=== PATIENT | female | born 1945 | race Caucasian/White ===

== ENCOUNTER → 2018-03-05 | Outpatient (CLI) | payer MEDICARE, OTHER | LOC: RAD 10:19 | PROVIDERS: ATTEND Family Medicine | DX: Z12.31 Encounter for screening mammogram for malignant neoplasm of breast (principal) | CPT/HCPCS: 77067 ==

== ENCOUNTER → 2018-04-28 | Outpatient (CLI) | payer MEDICARE, OTHER | LOC: CARD 12:40 | PROVIDERS: ATTEND Physician Assistant | DX: I10 Essential (primary) hypertension (principal); E78.2 Mixed hyperlipidemia; E11.9 Type 2 diabetes mellitus without complications; Z95.2 Presence of prosthetic heart valve | CPT/HCPCS: 93306 ==

== ENCOUNTER → 2018-05-12 | Outpatient (CLI) | payer MEDICARE, OTHER ==
[~2018-05-12] MED LIST: CATHETER FLUSH 10 ML SYR IV PRN; REGADENOSON 0.4 MG/5 ML SYR (LEXISCAN) IV ONE
[2018-05-12 09:27] VITALS: BP 160/94
--- NOTE | 2018-05-12 14:35 | STRESS TEST ---
DATE OF SERVICE: 05/12/2018 LEXISCAN MYOVIEW STRESS TEST REFERRING PHYSICIAN: Dr. Powell Baseline heart rate is 94. Baseline blood pressure 160/94. Baseline EKG is sinus rhythm with no ischemic changes. In summary, the patient was injected with 10.34 mCi of technetium-99 Myoview and the resting images were obtained. Then, the patient received 0.4 mg of Lexiscan followed by 29.0 mCi of technetium-99 Myoview. Throughout the test, there were no EKG changes. The resting and stress images were reviewed and compared in the short axis, horizontal long axis, and vertical long axis views. Review of the images showed breast attenuation with typical female pattern. No significant ischemia or infarction was seen. SSS is 3, SDS 2, TID value 0.9. On the gated images, the left ventricle appeared to be small in size with hyperactive ventricle. Calculated ejection fraction 91%. CONCLUSION: 1. The patient tolerated Lexiscan well. 2. Breast attenuation with no significant ischemia or infarction on SPECT images. 3. Small left ventricular size with good contractility. Calculated ejection fraction 91%. Job ID: [id number] DocumentID: [id number] Dictated Date: 05/12/2018 12:04:48 Lubrication Supervisor Date: 05/12/2018 14:35:07 Dictated By: MARTHA POLLARD MD
== END ==
LOC: CARD 07:34
PROVIDERS: ATTEND Physician Assistant
DX: I10 Essential (primary) hypertension (principal); E78.2 Mixed hyperlipidemia; E11.9 Type 2 diabetes mellitus without complications; Z95.2 Presence of prosthetic heart valve
CPT/HCPCS: 78452; 93017

== ENCOUNTER → 2018-05-27 | Outpatient (CLI) | payer MEDICARE, OTHER ==
--- NOTE | 2018-05-27 14:37 | Diagnostic Imaging Report ---
INDICATION: Cough x4 months. TECHNIQUE: Two view chest at 10:00 a.m. CORRELATION STUDY: None FINDINGS: Poststernotomy changes with cardiac valve prosthesis and a closure device. Heart size is enlarged. There is present pulmonary vascular congestion and perihilar edema. There is ill-defined prominent appearance about the hilar structures. Mildly prominent interstitial markings about both lung arellano. Choco consolidating infiltrate does not appear to be present. No pneumothorax. Slightly accentuated thoracic kyphotic curvature with degenerative changes about the thoracic and lumbar spine. Calcification of the abdominal aorta. IMPRESSION: 1. Post sternotomy changes. Cardiac enlargement along with what appears to be pulmonary vascular congestion and perihilar edema. Follow-up imaging is recommended. Dictated by: Dictated on workstation # [id number]
--- NOTE | 2018-05-27 14:39 | Diagnostic Imaging Report ---
INDICATION: Increasing severity lower back pain. TECHNIQUE: AP, Lateral and Spot imaging of the lumbar spine CORRELATION STUDY: None FINDINGS: Mild rightward curvature of the lumbar spine. Alignment otherwise anatomic. Lumbar vertebral body heights maintained. Endplate lipping and mild sclerosis noted throughout the lumbar spine. Multilevel disc space narrowing in various degrees. Most pronounced at T12-L1, L1-L2, L3-L4 and L5-S1 levels. Very mild hypertrophic facet arthropathy at the L4-5 and L5-S1 levels. Dense aortic atherosclerotic vascular calcification. IMPRESSION: No radiographic evidence for acute bony abnormality of the lumbar spine. Mildly advanced multilevel degenerative changes are present. Mild rightward curvature of the lumbar spine. Dictated by: Dictated on workstation # [id number]
== END ==
LOC: RAD 09:26
PROVIDERS: ATTEND Family Medicine
DX: I51.7 Cardiomegaly (principal); M47.816 Spondylosis without myelopathy or radiculopathy, lumbar region; M43.8X6 Other specified deforming dorsopathies, lumbar region; R05 Cough; Z98.890 Other specified postprocedural states
CPT/HCPCS: 71046; 72100

== ENCOUNTER → 2018-07-04 | Outpatient (CLI) | payer MEDICARE, OTHER ==
--- NOTE | 2018-07-04 11:39 | Diagnostic Imaging Report ---
PROCEDURE: US Renal Bilateral. TECHNIQUE: Multiple real-time grayscale images were obtained over the kidneys in various projections bilaterally. INDICATION: Hematuria. Right kidney measures 9.1 x 3.3 x 4.6 cm, and left kidney measures 9.5 x 4.7 x 4.5 cm. Cortical thickness and echogenicity is normal. There is a cyst in lower pole of the left kidney measuring 3.5 x 3.7 cm. No calculi or hydronephrosis is seen. Bladder is unremarkable. Bilateral ureteral jets were visualized. IMPRESSION: Left renal cyst. The study is otherwise unremarkable. Dictated by: Dictated on workstation # [id number]
== END ==
LOC: RAD 10:21
PROVIDERS: ATTEND Nurse Practitioner Family
DX: N28.1 Cyst of kidney, acquired (principal); R31.9 Hematuria, unspecified
CPT/HCPCS: 76770

== ENCOUNTER 2018-09-10 05:45 | Outpatient (CLI) | payer MEDICARE, OTHER ==
[~2018-09-10] VITALS: Ht 157.5 cm; Wt 68.0 kg
[2018-09-10] MEDS ORDERED: CHOL200059 PO (12:07)
[2018-09-10] MEDS ORDERED: FURO20TA4 PO (12:07)
[2018-09-10] MEDS ORDERED: METO-387 PO (12:07)
[2018-09-10] MEDS ORDERED: EZET10TA5 PO (12:07)
[2018-09-10] MEDS ORDERED: LOSA25TA41 PO (12:07)
[2018-09-10] MEDS ORDERED: VITA-240 PO (12:07)
[2018-09-10] MEDS ORDERED: OMEG10005 PO (12:07)
[2018-09-10] MEDS ORDERED: MULT-633 PO (12:07)
[2018-09-10] MEDS ORDERED: METF-399 PO (12:07)
[2018-09-10] MEDS ORDERED: ALLO100T PO (12:07)
[2018-09-10] MEDS ORDERED: CALC600T12 PO (12:07)
[2018-09-10] MEDS ORDERED: L.AC1CAP6 PO (12:07)
== END 2018-09-10 12:12 | disposition home or self-care (01) ==
LOC: PREOP 05:45
PROVIDERS: ATTEND Specialist
DX: Z01.818 Encounter for other preprocedural examination (principal)

== ENCOUNTER 2018-09-12 07:37 | Day surgery (SDC) | payer MEDICARE, OTHER ==
[~2018-09-12] VITALS: Ht 157.5 cm; Wt 68.0 kg
[~2018-09-12 07:37] MED LIST changes: +ALLO100T PO; +CALC600T12 PO; -CATHETER FLUSH 10 ML SYR IV PRN; +CHOL200059 PO; +EZET10TA5 PO; +FURO20TA4 PO; +L.AC1CAP6 PO; +LOSA25TA41 PO; +METF-399 PO; +METO-387 PO; +MULT-633 PO; +OMEG10005 PO; -REGADENOSON 0.4 MG/5 ML SYR (LEXISCAN) IV ONE; +VITA-240 PO
[2018-09-12] MEDS ORDERED: LIDOCAINE PF 1% 2 ML AMP IR PRN (07:45)
[2018-09-12] MEDS ORDERED: POVIDONE (BETADINE) OPHTH SOLN 5% 30 ML OP ONE (07:45)
[2018-09-12] MEDS ORDERED: MOXIFLOXACIN OPHTH SOLN 5 MG/ML 0.3 ML SYRINGE OP ONE (07:45)
[2018-09-12] MEDS ORDERED: TIMOLOL MALEATE 0.5% 5 ML (TIMOPTIC) BTL OU PRN (07:45)
[2018-09-12 07:50] VITALS: BP 155/69
[2018-09-12] MEDS: TETRACAINE 0.5% OPHTH SOLN 4 ML BTL (SINGLE DOSE ONLY) OU PRN ×4 (07:58→08:18)
[2018-09-12] MEDS: PHENYLEPHRINE 10% OPHTH (NEO-SYN) 5 ML BTL OU SCH ×3 (08:08→08:19)
[2018-09-12] MEDS: CYCLOPENTOLATE 1% (CYCLOGYL) 2 ML DROPS OP SCH ×3 (08:08→08:19)
[2018-09-12] MEDS ORDERED: MIDAZOLAM 2 MG/2 ML (VERSED) VIAL ONE (08:16)
--- NOTE | 2018-09-12 08:31 | Ophthalmologist Pre-Op Note ---
Pre-Operative Progress Note H&P Reviewed The H&P was reviewed, patient examined and no changes noted. Date H&P Reviewed: Sep 12, 2018 Time H&P Reviewed: 08:31 Pre-Op Dx Cataract, Right Eye MOE ALEXANDER MD Sep 12, 2018 08:31
--- NOTE | 2018-09-12 08:59 | Ophthalmology Operative Report ---
Cataract removal/placement IOL PREOPERATIVE DIAGNOSIS: Cataract Right Eye POSTOPERATIVE DIAGNOSIS: Cataract Right Eye PROCEDURE: Cataract removal and placement of posterior chamber implant, right eye SURGEON: Sudheer Alexander ANESTHESIA: Topical with sedation COMPLICATIONS: None ESTIMATED BLOOD LOSS: Minimal DESCRIPTION OF PROCEDURE: After proper informed consent was obtained, the patient, a 73 female, was taken to the Operating Room and the right eye was anesthetized with tetracaine. The right eye was then prepped and draped in the usual manner. A wire lid speculum was placed. A paracentesis was made at the left hand position. Preservative free lidocaine was injected into the anterior chamber followed by viscoelastic. A clear corneal incision was made in the temporal position. A capsulorrhexis was preformed and the central nuclear and cortical material were removed. The posterior capsule was polished and Jake AU00T0 16.5 IOL was placed into the capsular bag. The residual viscoelastic was aspirated and balanced saline solution was injected into the anterior chamber. Moxifloxacin was injected into the anterior chamber. The wound was checked and found to be water tight. The patient tolerated the procedure well without complications. SUDHEER ALEXANDER MD Sep 12, 2018 08:59
[2018-09-12] MEDS ORDERED: acetaZOLAMIDE ER 500 MG CAP (DIAMOX SEQUELS) PO ONE (09:00)
[2018-09-12 09:05] VITALS: BP 149/72
--- NOTE | 2018-09-12 10:27 | Anesthesia-General Post-Op ---
MAC Patient Condition Mental Status/LOC: Same as Preop Cardiovascular: Satisfactory Nausea/Vomiting: Absent Respiratory: Satisfactory Pain: Controlled Complications: Absent Post Op Complications Complications None Follow Up Care/Instructions Patient Instructions None needed. Anesthesiology Discharge Order Discharge Order Patient is doing well, no complaints, stable vital signs, no apparent adverse anesthesia problems. No complications reported per nursing. BRENT GUZMAN CRNA Sep 12, 2018 10:27
--- OUTSIDE RECORDS SUMMARY | 2018-09-12 18:00 | XMS REPORT | Continuity of Care Document ---
Author Organization Unknown Address Unknown Allergies Active Description Code Type Severity Reaction Onset Reported/Identified Relationship to Patient Clinical Status Yes No Allergy Information Available [id number] Drug Allergy Unknown N/A 05/12/2018 Yes No Known Drug Allergies [id number] Drug Allergy Unknown N/A 09/10/2018 Medications There is no data. Problems Date Dx Coded Attending Type Code Diagnosis Diagnosed By 03/05/2018 TATYANA DIAZ DO Ot Z12.31 ENCNTR SCREEN MAMMOGRAM FOR MALIGNANT NE 03/07/2018 TATYANA DIAZ DO Ot Z12.31 ENCNTR SCREEN MAMMOGRAM FOR MALIGNANT NE 03/27/2018 TATYANA DIAZ DO Ot Z12.31 ENCNTR SCREEN MAMMOGRAM FOR MALIGNANT NE 04/29/2018 EDWAR FRIEDMAN Ot E11.9 TYPE 2 DIABETES MELLITUS WITHOUT COMPLIC 04/29/2018 EDWAR FRIEDMAN Ot E78.2 MIXED HYPERLIPIDEMIA 04/29/2018 EDWAR FRIEDMAN Ot I10 ESSENTIAL (PRIMARY) HYPERTENSION 04/29/2018 EDWAR FRIEDMAN Ot Z95.2 PRESENCE OF PROSTHETIC HEART VALVE 05/12/2018 TATYANA DIAZ DO Ot Z12.31 ENCNTR SCREEN MAMMOGRAM FOR MALIGNANT NE 05/12/2018 EDWAR FRIEDMAN Ot E11.9 TYPE 2 DIABETES MELLITUS WITHOUT COMPLIC 05/12/2018 EDWAR FRIEDMAN Ot E78.2 MIXED HYPERLIPIDEMIA 05/12/2018 EDWAR FRIEDMAN Ot I10 ESSENTIAL (PRIMARY) HYPERTENSION 05/12/2018 EDWAR FRIEDMAN Ot Z95.2 PRESENCE OF PROSTHETIC HEART VALVE 05/13/2018 EDWAR FRIEDMAN Ot E11.9 TYPE 2 DIABETES MELLITUS WITHOUT COMPLIC 05/13/2018 EDWAR FRIEDMAN Ot E78.2 MIXED HYPERLIPIDEMIA 05/13/2018 ALICIA SAWANT, EDWAR Luque Ot I10 ESSENTIAL (PRIMARY) HYPERTENSION 05/13/2018 ALICIA SAWANT, EDWAR Luque Ot Z95.2 PRESENCE OF PROSTHETIC HEART VALVE 05/21/2018 ALICIA SAWANT, EDWAR Luque Ot E11.9 TYPE 2 DIABETES MELLITUS WITHOUT COMPLIC 05/21/2018 ALICIA SAWANT, EDWAR Luque Ot E78.2 MIXED HYPERLIPIDEMIA 05/21/2018 ALICIA SAWANT, EDWAR Luque Ot I10 ESSENTIAL (PRIMARY) HYPERTENSION 05/21/2018 ALICIA SAWANT, EDWAR Luque Ot Z95.2 PRESENCE OF PROSTHETIC HEART VALVE 05/23/2018 ALICIA SAWANT, EDWAR Luque Ot E11.9 TYPE 2 DIABETES MELLITUS WITHOUT COMPLIC 05/23/2018 ALICIA SAWANT, EDWAR Luque Ot E78.2 MIXED HYPERLIPIDEMIA 05/23/2018 ALICIA SAWANT, EDWAR Luque Ot I10 ESSENTIAL (PRIMARY) HYPERTENSION 05/23/2018 ALICIA SAWANT, EDWAR Luque Ot Z95.2 PRESENCE OF PROSTHETIC HEART VALVE 05/28/2018 TATYANA DAIZ DO Ot I51.7 CARDIOMEGALY 05/28/2018 TATYANA DIAZ DO Ot M43.8X6 OTHER SPECIFIED DEFORMING DORSOPATHIES, 05/28/2018 TATYANA DIAZ DO S Ot M47.816 SPONDYLOSIS W/O MYELOPATHY OR RADICULOPA 05/28/2018 TATYANA DIAZ DO Ot R05 COUGH 05/28/2018 TATYANA DIAZ DO S Ot Z98.890 OTHER SPECIFIED POSTPROCEDURAL STATES 06/05/2018 EDWAR FRIEDMAN Ot E11.9 TYPE 2 DIABETES MELLITUS WITHOUT COMPLIC 06/05/2018 EDWAR FRIEDMAN Ot E78.2 MIXED HYPERLIPIDEMIA 06/05/2018 ALICIA SAWANT, EDWAR Luque Ot I10 ESSENTIAL (PRIMARY) HYPERTENSION 06/05/2018 EDWAR FRIEDMAN Ot Z95.2 PRESENCE OF PROSTHETIC HEART VALVE 06/10/2018 EDWAR FRIEDMAN Ot E11.9 TYPE 2 DIABETES MELLITUS WITHOUT COMPLIC 06/10/2018 EDWAR FRIEDMAN Ot E78.2 MIXED HYPERLIPIDEMIA 06/10/2018 EDWAR FRIEDMAN Ot I10 ESSENTIAL (PRIMARY) HYPERTENSION 06/10/2018 EDWAR FRIEDMAN Ot Z95.2 PRESENCE OF PROSTHETIC HEART VALVE 06/20/2018 ORENDER DO, TATYANA S Ot I51.7 CARDIOMEGALY 06/20/2018 ORENDER DO, TATYANA S Ot M43.8X6 OTHER SPECIFIED DEFORMING DORSOPATHIES, 06/20/2018 ORENDER DO, TATYANA S Ot M47.816 SPONDYLOSIS W/O MYELOPATHY OR RADICULOPA 06/20/2018 ORENDER DO, TATYANA S Ot R05 COUGH 06/20/2018 ORENDER DO, TATYANA S Ot Z98.890 OTHER SPECIFIED POSTPROCEDURAL STATES 07/05/2018 ANIYA MOHAN SALES VICE PRESIDENT Ot N28.1 CYST OF KIDNEY, ACQUIRED 07/05/2018 ANIYA MOHAN SALES VICE PRESIDENT Ot R31.9 HEMATURIA, UNSPECIFIED 07/08/2018 ORENDER DO, TATYANA S Ot I51.7 CARDIOMEGALY 07/08/2018 ORENDER DO, TATYANA S Ot M43.8X6 OTHER SPECIFIED DEFORMING DORSOPATHIES, 07/08/2018 ORENDER DO, TATYANA S Ot M47.816 SPONDYLOSIS W/O MYELOPATHY OR RADICULOPA 07/08/2018 ORENDER DO, TATYANA S Ot R05 COUGH 07/08/2018 ORENDER DO, TATYANA S Ot Z98.890 OTHER SPECIFIED POSTPROCEDURAL STATES 07/15/2018 ORENDER DO, TATYANA S Ot I51.7 CARDIOMEGALY 07/15/2018 ORENDER DO, TATYANA S Ot M43.8X6 OTHER SPECIFIED DEFORMING DORSOPATHIES, 07/15/2018 ORENDER DO, TATYANA S Ot M47.816 SPONDYLOSIS W/O MYELOPATHY OR RADICULOPA 07/15/2018 ORENDER DO, TATYANA S Ot R05 COUGH 07/15/2018 ORENDER DO, TATYANA S Ot Z98.890 OTHER SPECIFIED POSTPROCEDURAL STATES 07/24/2018 ANIYA MOHAN SALES VICE PRESIDENT Ot N28.1 CYST OF KIDNEY, ACQUIRED 07/24/2018 ANIYA MOHAN APRN Ot R31.9 HEMATURIA, UNSPECIFIED 07/31/2018 ANIYA MOHAN SALES VICE PRESIDENT Ot N28.1 CYST OF KIDNEY, ACQUIRED 07/31/2018 ANIYA MOHAN APRN Ot R31.9 HEMATURIA, UNSPECIFIED 09/10/2018 MOE ALEXANDER MD Ot Z01.818 ENCOUNTER FOR OTHER PREPROCEDURAL EXAMIN Procedures There is no data. Results There is no data. Encounters ACCT No. Visit Date/Time Discharge Status Pt. Type Provider Facility Loc./Unit Complaint [id number] 07/31/2018 13:00:38 07/31/2018 23:59:59 CLS Outpatient [id number] 09/10/2018 05:45:00 09/10/2018 12:12:00 DIS Outpatient MOE ALEXANDER MD [facility] PREOP RIGHT CATARACT [id number] 07/04/2018 10:21:00 07/04/2018 23:59:59 CLS Outpatient ANIYA MOHAN APRN [facility] RAD HEMATURIA [id number] 05/27/2018 09:26:00 05/27/2018 23:59:59 CLS Outpatient TATYANA DIAZ DO [facility] RAD COUGH,LOW BACK PAIN [id number] 05/12/2018 07:34:00 05/12/2018 23:59:59 CLS Outpatient EDWAR FRIEDMAN [facility] CARD AORTIC VALVE REPLACED, DM, HYPERTENSION [id number] 04/28/2018 12:40:00 04/28/2018 23:59:59 CLS Outpatient EDWAR FRIEDMAN [facility] CARD AORTIC VALVE REPLACED, DM, HYPERTENSION [id number] 03/05/2018 10:19:00 03/05/2018 23:59:59 CLS Outpatient TATYANA DIAZ DO [facility] RAD SCREENING [id number] 09/19/2018 11:00:00 PEN Preadmit MOE ALEXANDER MD [facility] SDC CATARACT LEFT EYE [id number] 09/12/2018 08:30:00 TAINA ALEXANDER MD, MOE Jones [facility] RIGHT CATARACT
== END 2018-09-12 09:05 | disposition home or self-care (01) ==
LOC: SDC 07:37
PROVIDERS: ATTEND Specialist
DX: E11.36 Type 2 diabetes mellitus with diabetic cataract (principal); H25.11 Age-related nuclear cataract, right eye; Z87.891 Personal history of nicotine dependence; Z80.0 Family history of malignant neoplasm of digestive organs; Z95.2 Presence of prosthetic heart valve; I10 Essential (primary) hypertension; Z79.899 Other long term (current) drug therapy; Z79.84 Long term (current) use of oral hypoglycemic drugs

== ENCOUNTER 2018-09-18 05:45 | Outpatient (CLI) | payer MEDICARE, OTHER | END 2018-09-18 10:33 | disposition home or self-care (01) | LOC: PREOP 05:45 | PROVIDERS: ATTEND Specialist | DX: Z01.818 Encounter for other preprocedural examination (principal) ==

== ENCOUNTER 2018-09-19 09:20 | Day surgery (SDC) | payer MEDICARE, OTHER ==
[~2018-09-19] VITALS: Ht 157.5 cm; Wt 68.0 kg
[2018-09-19] MEDS ORDERED: PHENYLEPHRINE 10% OPHTH (NEO-SYN) 5 ML BTL ONE (09:22)
[2018-09-19 09:30] VITALS: BP 178/94
[2018-09-19] MEDS: TETRACAINE 0.5% OPHTH SOLN 4 ML BTL (SINGLE DOSE ONLY) OU PRN ×4 (09:30→09:50)
[2018-09-19] MEDS ORDERED: MOXIFLOXACIN OPHTH SOLN 5 MG/ML 0.3 ML SYRINGE OP ONE (09:30)
[2018-09-19] MEDS ORDERED: acetaZOLAMIDE ER 500 MG CAP (DIAMOX SEQUELS) PO ONE (09:30)
[2018-09-19] MEDS ORDERED: TIMOLOL MALEATE 0.5% 5 ML (TIMOPTIC) BTL OU PRN (09:30)
[2018-09-19] MEDS ORDERED: LIDOCAINE PF 1% 2 ML AMP IR PRN (09:30)
[2018-09-19] MEDS ORDERED: POVIDONE (BETADINE) OPHTH SOLN 5% 30 ML OP ONE (09:30)
[2018-09-19] MEDS: CYCLOPENTOLATE 1% (CYCLOGYL) 2 ML DROPS OP SCH ×3 (09:40→09:50)
[2018-09-19] MEDS: PHENYLEPHRINE 10% OPHTH (NEO-SYN) 5 ML BTL OU SCH ×3 (09:40→09:50)
[2018-09-19] MEDS ORDERED: MIDAZOLAM 2 MG/2 ML (VERSED) VIAL ONE (09:58)
--- NOTE | 2018-09-19 10:01 | Ophthalmologist Pre-Op Note ---
Pre-Operative Progress Note H&P Reviewed The H&P was reviewed, patient examined and no changes noted. Date H&P Reviewed: Sep 19, 2018 Time H&P Reviewed: 10:01 Pre-Op Dx Cataract, Left Eye MOE ALEXANDER MD Sep 19, 2018 10:01
--- NOTE | 2018-09-19 10:21 | Ophthalmology Operative Report ---
Cataract removal/placement IOL PREOPERATIVE DIAGNOSIS: Cataract Left Eye POSTOPERATIVE DIAGNOSIS: Cataract Left Eye PROCEDURE: Cataract removal and placement of posterior chamber implant, left eye SURGEON: Sudheer Alexander ANESTHESIA: Topical with sedation COMPLICATIONS: None ESTIMATED BLOOD LOSS: Minimal DESCRIPTION OF PROCEDURE: After proper informed consent was obtained, the patient, a 73 female, was taken to the Operating Room and the left eye was anesthetized with tetracaine. The left eye was then prepped and draped in the usual manner. A wire lid speculum was placed. A paracentesis was made at the left hand position. Preservative free lidocaine was injected into the anterior chamber followed by viscoelastic. A clear corneal incision was made in the temporal position. A capsulorrhexis was preformed and the central nuclear and cortical material were removed. The posterior capsule was polished and an Jake 16.0 AU00T0 was placed into the capsular bag. The residual viscoelastic was aspirated and balanced saline solution was injected into the anterior chamber. Moxifloxacin was injected into the anterior chamber. The wound was checked and found to be water tight. The patient tolerated the procedure well without complications. SUDHEER ALEXANDER MD Sep 19, 2018 10:21
[2018-09-19 10:36] VITALS: BP 170/84
--- OUTSIDE RECORDS SUMMARY | 2018-09-19 10:54 | XMS REPORT | Continuity of Care Document ---
Author Organization Unknown Address Unknown Allergies Active Description Code Type Severity Reaction Onset Reported/Identified Relationship to Patient Clinical Status Yes No Allergy Information Available [id number] Drug Allergy Unknown N/A 05/12/2018 Yes No Known Drug Allergies [id number] Drug Allergy Unknown N/A 09/10/2018 Medications There [...] PRESENCE OF PROSTHETIC HEART VALVE 05/21/2018 ALICIA SAWNAT, EDWAR Luque Ot E11.9 TYPE 2 DIABETES [...] PRESENCE OF PROSTHETIC HEART VALVE 05/28/2018 TATYANA DIAZ DO Ot I51.7 CARDIOMEGALY 05/28/2018 TATYANA DIAZ [...] Luque Ot I10 ESSENTIAL (PRIMARY) HYPERTENSION 06/05/2018 EDAWR FRIEDMAN Ot Z95.2 PRESENCE OF PROSTHETIC HEART [...] OTHER SPECIFIED POSTPROCEDURAL STATES 07/05/2018 ANIYA MOHAN WINDSHIELD TECHNICIAN Ot N28.1 CYST OF KIDNEY, ACQUIRED 07/05/2018 ANIYA MOHAN WINDSHIELD TECHNICIAN Ot R31.9 HEMATURIA, UNSPECIFIED 07/08/2018 ORENDER DO, [...] OTHER SPECIFIED POSTPROCEDURAL STATES 07/24/2018 ANIYA MOHAN APRN Ot N28.1 CYST OF KIDNEY, ACQUIRED 07/24/2018 ANIYA MOHAN APRN Ot R31.9 HEMATURIA, UNSPECIFIED 07/31/2018 ANIYA MOHAN APRN Ot N28.1 CYST OF KIDNEY, ACQUIRED 07/31/2018 ANIYA MOHAN APRN Ot R31.9 HEMATURIA, UNSPECIFIED 09/10/2018 MOE ALEXANDER MD Ot Z01.818 ENCOUNTER FOR OTHER PREPROCEDURAL EXAMIN Procedures There is no data. Results There is no data. Encounters ACCT No. Visit Date/Time Discharge Status Pt. Type Provider Facility Loc./Unit Complaint [id number] 07/31/2018 13:00:38 07/31/2018 23:59:59 CLS Outpatient [id number] 09/12/2018 07:37:00 09/12/2018 09:05:00 DIS Outpatient MOE ALEXANDER MD [facility] SDC RIGHT CATARACT [id number] 09/10/2018 05:45:00 09/10/2018 12:12:00 DIS Outpatient MOE ALEXANDER MD [facility] PREOP RIGHT CATARACT [id number] 07/04/2018 10:21:00 07/04/2018 23:59:59 CLS Outpatient ANIYA MOHAN APRN [facility] RAD HEMATURIA [id number] 05/27/2018 09:26:00 05/27/2018 23:59:59 CLS Outpatient TATYANA DIAZ DO [facility] RAD COUGH,LOW BACK PAIN [id number] 05/12/2018 07:34:00 05/12/2018 23:59:59 CLS Outpatient EDWAR FRIEDMAN [facility] CARD AORTIC VALVE REPLACED, DM, HYPERTENSION [id number] 04/28/2018 12:40:00 04/28/2018 23:59:59 CLS Outpatient EDWAR FRIEDMAN [facility] CARD AORTIC VALVE REPLACED, DM, HYPERTENSION [id number] 03/05/2018 10:19:00 03/05/2018 23:59:59 CLS Outpatient TATYANA DIAZ DO [facility] RAD SCREENING [id number] 09/19/2018 11:00:00 PEN Preadmit CATHERINE VELEZ, [facility] [id number] 09/18/2018 05:45:00 ACT Outpatient MOE ALEXANDER MD [facility] PREOP CATARACT LEFT EYE
== END 2018-09-19 10:36 | disposition home or self-care (01) ==
LOC: SDC 09:20
PROVIDERS: ATTEND Specialist
DX: H25.12 Age-related nuclear cataract, left eye (principal); E11.9 Type 2 diabetes mellitus without complications; I11.0 Hypertensive heart disease with heart failure; I50.9 Heart failure, unspecified; E78.5 Hyperlipidemia, unspecified; Z95.2 Presence of prosthetic heart valve; Z79.899 Other long term (current) drug therapy; Z79.84 Long term (current) use of oral hypoglycemic drugs; Z87.891 Personal history of nicotine dependence; Z80.0 Family history of malignant neoplasm of digestive organs

== ENCOUNTER → 2018-11-20 | Outpatient (CLI) | payer MEDICARE, OTHER ==
--- NOTE | 2018-11-20 11:43 | Diagnostic Imaging Report ---
Indication: Left axillary tenderness. Sonographic interrogation of the area of tenderness in the left axilla was performed. No sonographic abnormality is identified. No solid or cystic mass is detected. Impression: BI-RADS category 1 No sonographic abnormality is detected. Continued clinical followup is recommended. ACR BI-RADS Category 1: Negative. Result letter will be mailed to the patient. Note: At least 10% of breast cancer is not imaged by mammography. Dictated by: Dictated on workstation # [id number]
== END ==
LOC: RAD 10:03
PROVIDERS: ATTEND Family Medicine
DX: M79.622 Pain in left upper arm (principal)
CPT/HCPCS: 76642

== ENCOUNTER → 2018-12-31 | Outpatient (CLI) | payer MEDICARE, OTHER ==
--- NOTE | 2018-12-31 18:44 | Diagnostic Imaging Report ---
EXAMINATION: Chest (PA and lateral). CLINICAL INDICATION: 73-year-old female, chronic cough. Shortness of breath. COMPARISON: May 27, 2018. FINDINGS: There are median sternotomy wires. Stable overall appearance of the cardiac mediastinal silhouette. There is no identified pneumothorax. There is no pleural effusion. There is valvular hardware. There are bilateral predominantly interstitial opacities with grossly unchanged appearance since comparison study. IMPRESSION: 1. Unchanged interstitial opacities which may relate to chronic lung changes and/or pulmonary interstitial edema. 2. No evidence of a new acute cardiopulmonary abnormality. Dictated by: Dictated on workstation # [id number]
== END ==
LOC: RAD 15:52
PROVIDERS: ATTEND Family Medicine
DX: J84.89 Other specified interstitial pulmonary diseases (principal)
CPT/HCPCS: 71046

== ENCOUNTER → 2019-01-08 | Outpatient (CLI) | payer MEDICARE, OTHER ==
--- NOTE | 2019-01-08 11:44 | Diagnostic Imaging Report ---
PROCEDURE: CT chest without contrast. TECHNIQUE: Multiple contiguous axial images were obtained through the chest without the use of intravenous contrast. Auto Exposure Controls were utilized during the CT exam to meet ALARA standards for radiation dose reduction. INDICATION: Difficulty breathing. COMPARISON: There are no prior CT chest examinations available for comparison. FINDINGS: The plain film examination of the chest performed on 12/31/2018 noted postsurgical changes consistent with a prior median sternotomy. There is also a valvular prosthesis in place. The chest exam also identified interstitial densities in both lungs. On this exam there are coarse interstitial densities in both lungs. I suspect that these findings are chronic in nature. In addition there are patchy alveolar/interstitial infiltrates involving each lung base and these findings do suggest that there is an element of mild acute pneumonia/atelectasis present. A very small right pleural effusion is also seen. A small amount of fluid is also seen in the minor fissure on the right. The heart is enlarged and there are coronary artery calcifications evident. The valvular prosthesis seen previously is again evident as is the linear metallic density overlying the left heart border. The aorta is not abnormally dilated. There does appear to be mediastinal adenopathy. Specifically, there is a 2.3 x 2.8 cm pretracheal mass on the right. There are also two enlarged lymph nodes in the aorticopulmonary window measuring 1.8 x 2.8 cm and 1.3 x 2.4 cm. There may be a 4 cm subcarinal mass as well. There is also suggestion of left hilar adenopathy. The left hilum is difficult to evaluate however due to the absence of intravenous contrast. The etiology of the mediastinal adenopathy is not certain but these nodes could certainly be neoplastic in nature. Bronchoscopy would be recommended for further evaluation. The thyroid gland is not enlarged. There is a suggestion of a low-density nodule in the left lobe. This is difficult to visualize but may measure 1.4 cm. Ultrasound would be recommended for further study. The breasts were visualized showed no evidence for a mass. The sections through the upper abdomen are unremarkable for an acute abnormality. There does appear to be a 3 cm hiatal hernia. The bone windows show no evidence for a fracture or for a destructive lesion. IMPRESSION: 1. There is mild pneumonia/atelectasis in each lung base and a small amount of fluid in the right lower lobe. There are also chronic pulmonary changes bilaterally. 2. There is cardiomegaly, coronary artery disease and evidence of prior cardiac surgery. 3. There is mediastinal and left hilar adenopathy. These nodes are nonspecific in appearance. While these could be reactive nodes the possibility that these nodes are neoplastic in nature should be the primary concern. Recommendations as above. Dictated by: Dictated on workstation # [id number]
== END ==
LOC: RAD 10:05
PROVIDERS: ATTEND Family Medicine
DX: I51.7 Cardiomegaly (principal); I25.10 Atherosclerotic heart disease of native coronary artery without angina pectoris; J81.0 Acute pulmonary edema; R59.0 Localized enlarged lymph nodes
CPT/HCPCS: 71250

== ENCOUNTER → 2019-02-09 | Outpatient (CLI) | payer MEDICARE, OTHER ==
[~2019-02-09] MED LIST changes: +CATHETER FLUSH 10 ML SYR IV PRN; +HOLD METFORMIN - RECEIVED CONTRAST 20 ML VIAL IV SCH; +IOHEXOL 350 MG/ML 100 ML (OMNIPAQUE 350) VIAL IV ONE; +NS 100 ML (IVPB) BAG IV ONE
[2019-02-09 14:46] LABS: BUN/CREATININE RATIO 19; GFR ESTIMATED > 60
--- NOTE | 2019-02-09 15:31 | Diagnostic Imaging Report ---
EXAMINATION: CT Chest with intravenous contrast. TECHNIQUE: Multiple contiguous axial images were obtained through the chest after the uneventful administration of intravenous contrast. All CT scans use one or more of the following dose optimizing techniques: automated exposure control, MA and/or KvP adjustment based on a patient size and exam type, or iterative reconstruction. HISTORY: Cough. COMPARISON: 01/08/2019. FINDINGS: There is moderate groundglass and septal line thickening in a so-called crazy-paving pattern throughout the lungs in keeping with moderate pulmonary edema. There is mild atelectasis in the bases, decreased from prior exam. No consolidation. No pneumothorax. No suspicious nodules. There has been a median sternotomy with an aortic valve replacement and left atrial appendage clip. There is mediastinal lymphadenopathy with right lower paratracheal lymph node measuring 2.5 x 3.0 cm. Subcarinal lymph node measures 2.5 cm. There are bilateral enlarged hilar lymph nodes and AP window lymph nodes as well. No pericardial effusion. Aorta is normal in caliber. There is no axillary or supraclavicular lymphadenopathy. Limited views of the upper abdomen are unremarkable. There are no suspicious osseus lesions. IMPRESSION: 1. Moderate pulmonary edema. 2. Mediastinal lymphadenopathy. Lymph nodes are quite large for simple reactive lymph nodes and are concerning for a malignant process such as lymphoma. Dictated by: Dictated on workstation # [id number]
== END ==
LOC: RAD 14:00
PROVIDERS: ATTEND Nurse Practitioner Family
DX: J98.4 Other disorders of lung (principal); J81.1 Chronic pulmonary edema; R91.8 Other nonspecific abnormal finding of lung field; R59.0 Localized enlarged lymph nodes; Z95.2 Presence of prosthetic heart valve
CPT/HCPCS: 36415; 71260; 82565; 84520

== ENCOUNTER → 2019-02-16 | Outpatient (CLI) | payer MEDICARE, OTHER ==
[~2019-02-16] MED LIST changes: -CATHETER FLUSH 10 ML SYR IV PRN; -HOLD METFORMIN - RECEIVED CONTRAST 20 ML VIAL IV SCH; -IOHEXOL 350 MG/ML 100 ML (OMNIPAQUE 350) VIAL IV ONE; -NS 100 ML (IVPB) BAG IV ONE; +RT-ALBUTEROL SULF 2.5 MG/3 ML PRE-MIX VIAL INH ONE
== END ==
LOC: RT 07:58
PROVIDERS: ATTEND Nurse Practitioner Family
DX: J98.4 Other disorders of lung (principal); R06.00 Dyspnea, unspecified; R05 Cough; Z95.2 Presence of prosthetic heart valve
CPT/HCPCS: 94060; 94640; 94726; 94729

== ENCOUNTER 2019-02-26 05:32 | Outpatient (CLI) | payer MEDICARE, OTHER ==
[~2019-02-26] VITALS: Ht 152.4 cm; Wt 69.5 kg
[~2019-02-26 05:32] MED LIST changes: -RT-ALBUTEROL SULF 2.5 MG/3 ML PRE-MIX VIAL INH ONE
[2019-02-26] MEDS ORDERED: CETI10TA20 PO (09:50)
[2019-02-26] MEDS ORDERED: FLUT9.9S NS (09:50)
== END 2019-02-26 09:52 | disposition home or self-care (01) ==
LOC: PREOP 05:32
PROVIDERS: ATTEND Internal Medicine Critical Care Medicine
DX: Z01.818 Encounter for other preprocedural examination (principal)

== ENCOUNTER → 2019-03-23 | Outpatient (CLI) | payer MEDICARE, OTHER ==
[~2019-03-23] MED LIST changes: +CETI10TA20 PO; +EZET10TA17 PO; -EZET10TA5 PO; +FLUT9.9S NS; -METO-387 PO; +MTP25TSR PO
== END ==
LOC: CARD 12:41
PROVIDERS: ATTEND Physician Assistant
DX: I08.3 Combined rheumatic disorders of mitral, aortic and tricuspid valves (principal); E11.9 Type 2 diabetes mellitus without complications; R06.00 Dyspnea, unspecified; I10 Essential (primary) hypertension; E78.2 Mixed hyperlipidemia; Z82.49 Family history of ischemic heart disease and other diseases of the circulatory system
CPT/HCPCS: 93306

== ENCOUNTER → 2019-05-04 | Outpatient (CLI) | payer MEDICARE, OTHER ==
[~2019-05-04] MED LIST changes: -CETI10TA20 PO; +CETI10TA21 PO; +HOLD METFORMIN - RECEIVED CONTRAST 20 ML VIAL IV SCH; +IOHEXOL 350 MG/ML 100 ML (OMNIPAQUE 350) VIAL IV ONE; +NS 100 ML (IVPB) BAG IV ONE; +VITA-235 PO; -VITA-240 PO
[2019-05-04 08:23] LABS: BASOPHILS # (AUTO) 0.1 10^3/uL (0.0-0.1); BASOPHILS % (AUTO) 1 % (0-10); EOSINOPHILS # (AUTO) 0.3 10^3/uL (0.0-0.3); EOSINOPHILS % (AUTO) 4 % (0-10); HEMATOCRIT 36 % (35-52); HEMOGLOBIN 11.8 G/DL (11.5-16.0); LYMPHOCYTES # (AUTO) 1.1 X 10^3 (1.0-4.0); LYMPHOCYTES % (AUTO) 15 % (12-44); MEAN CORPUSCULAR HEMOGLOBIN 28 PG (25-34); MEAN CORPUSCULAR HGB CONC 32 G/DL (32-36); MEAN CORPUSCULAR VOLUME 88 FL (80-99); MEAN PLATELET VOLUME 10.8 FL (7.4-10.4); MONOCYTES # (AUTO) 0.5 X 10^3 (0.0-1.0); MONOCYTES % (AUTO) 6 % (0-12); NEUTROPHILS # (AUTO) 5.7 X 10^3 (1.8-7.8); NEUTROPHILS % (AUTO) 75 % (42-75); PLATELET COUNT 278 10^3/uL (130-400); RED CELL DISTRIBUTION WIDTH 14.6 % (10.0-14.5); WHITE BLOOD COUNT 7.6 10^3/uL (4.3-11.0)
[2019-05-04 08:43] LABS: BUN/CREATININE RATIO 15; CREATININE SERUM 0.88 MG/DL (0.60-1.30); GFR ESTIMATED > 60
--- NOTE | 2019-05-04 09:28 | Diagnostic Imaging Report ---
PROCEDURE: CT chest with contrast only. TECHNIQUE: Multiple contiguous axial images were obtained through the chest after administration of intravenous contrast. Auto Exposure Controls were utilized during the CT exam to meet ALARA standards for radiation dose reduction. INDICATION: Dyspnea, cough, disorder of the lung COMPARISON: 02/09/2019 and 01/08/2019 FINDINGS: The thyroid gland is heterogeneous with a 1.3 cm nodule noted within the left lobe of the thyroid gland. Postsurgical changes of a CABG. Left atrial appendage clip is in place. Prosthetic aortic valve is also noted. Significant mediastinal and hilar adenopathy is again identified. This appears relatively similar to the prior examination. In particular, an AP window lymph node measures 2.5 x 1.4 cm, not significantly changed from the prior exam. A right paratracheal lymph node conglomerate measures 2.9 x 2.3 cm, relatively similar to the prior exam. Scattered vascular calcifications. No aneurysmal dilatation of the thoracic aorta. The heart is mildly enlarged, though stable. No pericardial effusion. No pleural effusion. No pneumothorax. Scattered reticular opacities with associated interlobular septal thickening is again noted within the lungs bilaterally, greatest within the lung bases. This is associated with geographic groundglass pulmonary opacities. Calcified granuloma within the left lower lobe. No new focal pulmonary opacity. Small hiatal hernia. Calcified splenic granuloma. Scattered osseous degenerative changes without acute osseous abnormality. IMPRESSION: Persistent extensive adenopathy. Although this could relate to reactive adenopathy or underlying granulomatous disease, biopsy is recommended for further evaluation as infiltrative process, particularly lymphoma needs to be excluded. Given prominent right paratracheal lymph node, biopsy could be performed endoscopically. Bilateral reticular opacities with associated geographic groundglass opacities related to pulmonary edema versus background interstitial lung changes with regions of air trapping. Thyroid nodules. Recommend ultrasound of the thyroid gland if these have not previously been evaluated. Additional postsurgical and chronic findings as above. Evidence of chronic granulomatous disease. Dictated by: Dictated on workstation # [id number]
== END ==
LOC: RAD 08:03
PROVIDERS: ATTEND Nurse Practitioner Family
DX: J45.909 Unspecified asthma, uncomplicated (principal); J84.10 Pulmonary fibrosis, unspecified; E04.2 Nontoxic multinodular goiter; J98.4 Other disorders of lung; R59.0 Localized enlarged lymph nodes; Z95.2 Presence of prosthetic heart valve; Z95.1 Presence of aortocoronary bypass graft; Z98.890 Other specified postprocedural states
CPT/HCPCS: 36415; 71260; 82164; 82330; 82565; 84520; 85025

== ENCOUNTER → 2019-09-28 | Outpatient (CLI) | payer MEDICARE, OTHER ==
[~2019-09-28] MED LIST changes: -CALC600T12 PO; +CALC600T14 PO; -HOLD METFORMIN - RECEIVED CONTRAST 20 ML VIAL IV SCH; -IOHEXOL 350 MG/ML 100 ML (OMNIPAQUE 350) VIAL IV ONE; -NS 100 ML (IVPB) BAG IV ONE
--- NOTE | 2019-09-28 17:08 | Diagnostic Imaging Report ---
INDICATION: Left hip pain. COMPARISON: None. FINDINGS: Two views of the left hip were obtained and show no fractures, dislocations, or other acute bony abnormalities. Joint spaces are well maintained throughout. The soft tissues appear unremarkable. No radiopaque foreign bodies are identified. IMPRESSION: Unremarkable radiographic exam of the left hip. Dictated by: Dictated on workstation # [id number]
== END ==
LOC: RAD 15:41
PROVIDERS: ATTEND Family Medicine
DX: S70.02XA Contusion of left hip, initial encounter (principal); X58.XXXA Exposure to other specified factors, initial encounter
CPT/HCPCS: 73502

== ENCOUNTER → 2019-10-28 | Outpatient (CLI) | payer MEDICARE, OTHER ==
[~2019-10-28] MED LIST changes: -CALC600T14 PO; +CATHETER FLUSH 10 ML SYR IV PRN; +CLC600T PO; +HOLD METFORMIN - RECEIVED CONTRAST 20 ML VIAL IV SCH; +IOHEXOL 350 MG/ML 100 ML (OMNIPAQUE 350) VIAL IV ONE; +NS 100 ML (IVPB) BAG IV ONE
[2019-10-28 10:43] LABS: CREATININE SERUM 0.88 MG/DL (0.60-1.30); GFR ESTIMATED > 60
[2019-10-28 10:44] LABS: BUN/CREATININE RATIO 17
--- NOTE | 2019-10-28 13:19 | Diagnostic Imaging Report ---
INDICATION: Dyspnea, history of lymphadenopathy. TECHNIQUE: Multiple contiguous axial images were obtained through the chest after administration of intravenous contrast. Auto Exposure Controls were utilized during the CT exam to meet ALARA standards for radiation dose reduction. COMPARISON: Comparison made to 05/04/2019. FINDINGS: Patient has had previous sternotomy and aortic valve replacement. Left atrial appendage clip is noted. There are no overt pulmonary emboli. There is atherosclerotic change of the aorta without evidence of aortic aneurysm. Lymphadenopathy in the mediastinum is again noted. The node in the anterior mediastinum which had measured 1.6 x 2.9 cm measures essentially the same at 2.9 x 1.5 cm. The node in the pretracheal region which had measured 2.9 x 2.2 cm now measures 2.9 x 2.0 cm. There are no enlarged axillary nodes. There is no pleural or pericardial fluid. There are no enlarged hilar nodes. Lung parenchymal windows again demonstrate scattered interstitial fibrotic changes and groundglass opacities which are similar to the previous study. There is no new consolidation or discrete nodule. Visualized portions of the upper abdomen were unremarkable. A small hiatal hernia is noted. IMPRESSION: Stable mediastinal lymphadenopathy compared to 05/04/2019. Postoperative change status post aortic valve replacement and left atrial appendage clip. Stable interstitial fibrotic changes in both lungs with groundglass opacities. There is no new abnormality. Dictated by: Dictated on workstation # [id number]
== END ==
LOC: RAD 10:08
PROVIDERS: ATTEND Nurse Practitioner Family
DX: J98.4 Other disorders of lung (principal); R59.0 Localized enlarged lymph nodes; R91.8 Other nonspecific abnormal finding of lung field; Z98.890 Other specified postprocedural states
CPT/HCPCS: 36415; 71260; 82565; 84520

== ENCOUNTER → 2019-12-18 | Outpatient (CLI) | payer MEDICARE, OTHER ==
[~2019-12-18] MED LIST changes: -CATHETER FLUSH 10 ML SYR IV PRN; -CETI10TA21 PO; +CETI10TA49 PO; -HOLD METFORMIN - RECEIVED CONTRAST 20 ML VIAL IV SCH; -IOHEXOL 350 MG/ML 100 ML (OMNIPAQUE 350) VIAL IV ONE; -NS 100 ML (IVPB) BAG IV ONE
--- NOTE | 2019-12-18 11:35 | Diagnostic Imaging Report ---
PROCEDURE: US Renal Bilateral. TECHNIQUE: Multiple real-time grayscale images were obtained over the kidneys in various projections bilaterally. INDICATION: Hematuria and left renal cyst, follow-up. Right kidney measures 10.3 x 3.8 x 4.3 cm and the left kidney measures 11.1 x 5.4 x 4.5 cm. Cortical thickness and echogenicity is normal. No calculi or hydronephrosis is identified. A cyst in the left kidney measures 4.2 x 3.5 x 3.6 cm compared with 3.5 x 3.5 x 3.7 cm on prior. No internal blood flow is present. Bladder is unremarkable. Ureteral jets are visualized. IMPRESSION: Left renal cyst measuring minimally larger when compared with prior examination from 07/04/2018. Dictated by: Dictated on workstation # [id number]
== END ==
LOC: RAD 09:15
PROVIDERS: ATTEND Nurse Practitioner Family
DX: N28.1 Cyst of kidney, acquired (principal); R31.9 Hematuria, unspecified
CPT/HCPCS: 76770

== ENCOUNTER 2020-01-20 17:43 | Emergency (ER) | payer MEDICARE, OTHER ==
[~2020-01-20] VITALS: Ht 158 cm; Wt 63.5 kg
[2020-01-20 18:29] LABS: BASOPHILS # (AUTO) 0.1 10^3/uL (0.0-0.1); BASOPHILS % (AUTO) 1 % (0-10); EOSINOPHILS # (AUTO) 0.5 10^3/uL (0.0-0.3); EOSINOPHILS % (AUTO) 6 % (0-10); HEMATOCRIT 31 % (35-52); HEMOGLOBIN 10.4 g/dL (11.5-16.0); LYMPHOCYTES # (AUTO) 1.4 10^3/uL (1.0-4.0); LYMPHOCYTES % (AUTO) 16 % (12-44); MEAN CORPUSCULAR HEMOGLOBIN 31 pg (25-34); MEAN CORPUSCULAR HGB CONC 33 g/dL (32-36); MEAN CORPUSCULAR VOLUME 92 fL (80-99); MEAN PLATELET VOLUME 10.7 fL (9.0-12.2); MONOCYTES # (AUTO) 0.6 10^3/uL (0.0-1.0); MONOCYTES % (AUTO) 6 % (0-12); NEUTROPHILS # (AUTO) 6.5 10^3/uL (1.8-7.8); NEUTROPHILS % (AUTO) 71 % (42-75); PLATELET COUNT 274 10^3/uL (130-400); WHITE BLOOD COUNT 9.1 10^3/uL (4.3-11.0)
[2020-01-20 18:36] LABS: CHLORIDE 101 MMOL/L (98-107); POTASSIUM 3.8 MMOL/L (3.6-5.0); SODIUM 138 MMOL/L (135-145)
[2020-01-20 18:37] LABS: CALCIUM 9.4 MG/DL (8.5-10.1)
[2020-01-20 18:39] LABS: GLUCOSE 130 MG/DL (70-105); TOTAL PROTEIN 7.9 GM/DL (6.4-8.2)
--- NOTE | 2020-01-20 18:39 | ED Respiratory ---
General Chief Complaint: Respiratory Problems Stated Complaint: SOA Nursing Triage Note: PT ARRIVES TO THE ER WITH C/O OF SHORTNESS OF BREATH STARTING YESTERDAY. PT IS ON HOME [address] KWAN. PT STATES SINCE BEING DIAGNOSED WITH COVID 19 ON 12-31 SHE HAS BEEN USING IT DAILY. Source: patient History of Present Illness Date Seen by Provider: Jan 20, 2020 Time Seen by Provider: 18:00 Initial Comments PT ARRIVES VIA POV FROM HOME PT TALKING ON PHONE ON ARRIVAL, FROM WAITING ROOM AND CONTINUED TO TALK ON PHONE AFTER SHE WAS TAKEN TO A ROOM PT STATES SHE BEGAN GETTING SICK ON 12/31/19, AFTER BEING AT A LARGE FAMILY GATHERING, WHERE ALL WHO ATTENDED HAVE TESTED + FOR COVID-19 STATES SHE WENT TO [facility] 01/01/20 AND TESTED + FOR COVID-19. NO RX'S GIVEN HAD A "TELEHEALTH" VISIT WITH ARMORED SERVICE TECHNICIAN AT DR. DIAZ'S OFFICE AFTER THAT AND WAS PRESCRIBED PREDNISONE FOR 5 DAYS AND ALBUTEROL INHALER STATES SHE USED INHALER ONCE THIS MORNING AND AGAIN AROUND NOON HAS HAD CONTINUED NON-PRODUCTIVE COUGH HAS HAD SHORTNESS OF BREATH, WORSE SINCE YESTERDAY PT HAS UNDERLYING LUNG PROBLEMS--DOES NOT KNOW WHAT KIND, BUT WEARS HOME O2 AT 2L AT HS AND PRN--HAS BEEN WEARING IT CONTINUOUSLY SINCE YESTERDAY PT STILL RUNNING FEVER 99-100 + LOSS OF TASTE AND SMELL NO GI SYMPTOMS NO SWELLING IN LEGS/FEET OR PAIN IN CALVES NO CHEST PAIN PT HAS HAD AORTIC VALVE REPLACEMENT IN 2013--BOVINE VALVE--NO BLOOD THINNERS PT IS ALSO NON-INSULIN DIABETIC--BLOOD GLUCOSE WAS 115 THIS AM. PT STATES "I DON'T HAVE COVID ANYMORE, BECAUSE MY 10 DAYS ARE OVER WITH" --HAS NOT QUARANTINED ADVISED PCP: DR. DIAZ USPS LETTER CARRIER--WAS DR. POLLARD, RECENTLY STARTED SEEING DR. LAZAR AT [facility] Allergies and Home Medications Allergies Coded Allergies: hydrocodone (Verified Allergy, Unknown, Vomiting, 02/26/19) Home Medications Allopurinol 100 Mg Tablet, 100 MG PO DAILY, (Reported) Azithromycin 500 Mg Tablet, 500 MG PO DAILY Prescribed by: EDWIN PINEDO on 01/20/202123 Benzonatate 100 Mg Capsule, 100 MG PO TID Prescribed by: EDWIN PINEDO on 01/20/202123 Calcium Carbonate 600 Mg Tablet, 600 MG PO DAILY, (Reported) Cefdinir 300 Mg Capsule, 300 MG PO BID Prescribed by: EDWIN PINEDO on 01/20/202123 Cetirizine HCl 10 Mg Tablet, 10 MG PO DAILY, (Reported) Cholecalciferol (Vitamin D3) 2,000 Unit Tablet, 2,000 UNIT PO DAILY, (Reported) Dexamethasone 6 Mg Tablet, 6 MG PO DAILY Prescribed by: EDWIN PINEDO on 01/20/202123 Ezetimibe 10 Mg Tablet, 10 MG PO DAILY, (Reported) Fluticasone Propionate 9.9 Ml [place].susp, 1 SPRAY NS DAILY, (Reported) Fluticasone/Salmeterol 1 Each Blst.w.dev, 2 PUFF IH BID Prescribed by: EDWIN PINEDO on 01/20/202123 Guaifenesin/Dextromethorphan 1 Each Tbmp.12hr, 1 EACH PO BID Prescribed by: EDWIN PINEDO on 01/20/202123 L.acidoph & Paracasei,B.lactis 1 Each Capsule, 1 EACH PO DAILY, (Reported) Losartan Potassium 25 Mg Tablet, 25 MG PO DAILY, (Reported) Magnesium Oxide 200 Mg Tablet, 400 MG PO DAILY Prescribed by: EDWIN PINEDO on 01/20/202123 Metformin HCl 1,000 Mg Tablet, 1,000 MG PO BID, (Reported) Metoprolol Succinate 25 Mg Tab.er.24h, 25 MG PO BID, (Reported) Multivitamin 1 Each Tablet, 1 EACH PO DAILY, (Reported) Gilman-3 Fatty Acids 1,000 Mg Capsule, 1,000 MG PO DAILY, (Reported) Vitamin E (Dl,Tocopheryl Acet) 400 Unit Capsule, 400 UNIT PO DAILY, (Reported) Patient Home Medication List Home Medication List Reviewed: Yes Review of Systems Review of Systems Constitutional: see HPI, fever, malaise EENTM: no symptoms reported Respiratory: see HPI, cough, dyspnea on exertion; No phlegm; short of breath Cardiovascular: no symptoms reported; No chest pain, No edema, No palpitations, No syncope Gastrointestinal: no symptoms reported; No abdominal pain, No diarrhea, No nausea, No vomiting Genitourinary: no symptoms reported Musculoskeletal: no symptoms reported Skin: no symptoms reported Psychiatric/Neurological: No Symptoms Reported Hematologic/Lymphatic: No Symptoms Reported Immunological/Allergic: no symptoms reported Past Rrksopd-Nwivvd-Bvmcul Hx Past Med/Social Hx: Reviewed and Corrections made Patient Social History Alcohol Use: Past History (HISTORY OF ABUSE/HEAVY USE) Recreational Drug Use: No Smoking Status: Former Smoker (1 PPD, QUIT YEARS AGO) Former Smoker, Quit: Feb 27, 1976 Recent Foreign Travel: No Contact w/Someone Who Travel: No Recent Infectious Disease Expo: Yes Recent Hopitalizations: No Immunizations Up To Date Date of Pneumonia Vaccine: Oct 27, 2018 Date of Influenza Vaccine: Nov 26, 2018 Seasonal Allergies Seasonal Allergies: No Past Medical History Surgeries: Yes (AORTIC VALVE REPLACEMENT/BOVINE VALVE 2013;CATARACT SURGERY) Eye Surgery, Tubal Ligation, Valve Replacement Respiratory: Yes (CHRONIC DYSPNEA AND COUGH--O2 AT 2L AT HS AND PRN) Cardiac: Yes (AORTIC VALVE REPLACEMENT / BOVINE VALVE 2013) Heart Murmur, Hypertension, Valvular Heart Disease Neurological: No PROCUREMENT OFFICER History: Tubal Ligation, Menopausal Genitourinary: No Gastrointestinal: Yes Gastroesophageal Reflux Musculoskeletal: Yes Arthritis, Gout Endocrine: Yes Diabetes, Non-Insulin dep HEENT: Yes (cataracts removed) Cancer: No Psychosocial: No Integumentary: No Blood Disorders: Yes (anemia) Physical Exam Vital Signs - First Documented 01/20/20 17:55 Temp 36.6 Pulse 103 Resp 20 B/P (MAP) 145/84 (104) Pulse Ox 95 O2 Delivery Nasal Cannula O2 Flow Rate 3.00 Capillary Refill : Greater Than 3 Seconds Height: 5'2.00" Weight: 150lbs. 0.0oz. 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, no motor/sensory deficits, alert, normal mood/affect, oriented x 3 Skin: normal color, warm/dry Progress/Results/Core Measures Suspected Sepsis Recent Fever Within 48 Hours: No Infection Criteria Present: None New/Unexplained Altered Menta: No Sepsis Screen: No Definite Risk SIRS Temperature: Pulse: 103 Respiratory Rate: 20 Laboratory Tests 01/20/20 18:07: White Blood Count 9.1 Blood Pressure 145 /84 Mean: 104 Laboratory Tests 01/20/20 18:07: Creatinine 0.78, INR Comment 1.0, Platelet Count 274, Total Bilirubin 0.4 Results/Orders Lab Results Laboratory Tests Test 01/20/20 18:07 Range/Units White Blood Count 9.1 4.3-11.0 10^3/uL Red Blood Count 3.40 L 3.80-5.11 10^6/uL Hemoglobin 10.4 L 11.5-16.0 g/dL Hematocrit 31 L 35-52 % Mean Corpuscular Volume 92 80-99 fL Mean Corpuscular Hemoglobin 31 25-34 pg Mean Corpuscular Hemoglobin Concent 33 32-36 g/dL Red Cell Distribution Width 14.4 10.0-14.5 % Platelet Count 274 130-400 10^3/uL Mean Platelet Volume 10.7 9.0-12.2 fL Immature Granulocyte % (Auto) 0 % Neutrophils (%) (Auto) 71 42-75 % Lymphocytes (%) (Auto) 16 12-44 % Monocytes (%) (Auto) 6 0-12 % Eosinophils (%) (Auto) 6 0-10 % Basophils (%) (Auto) 1 0-10 % Neutrophils # (Auto) 6.5 1.8-7.8 10^3/uL Lymphocytes # (Auto) 1.4 1.0-4.0 10^3/uL Monocytes # (Auto) 0.6 0.0-1.0 10^3/uL Eosinophils # (Auto) 0.5 H 0.0-0.3 10^3/uL Basophils # (Auto) 0.1 0.0-0.1 10^3/uL Immature Granulocyte # (Auto) 0.0 0.0-0.1 10^3/uL Erythrocyte Sedimentation Rate 43 H 0-30 MM/HR Prothrombin Time 13.4 12.2-14.7 SEC INR Comment 1.0 0.8-1.4 Activated Partial Thromboplast Time 28 24-35 SEC D-Dimer 0.72 H 0.00-0.49 UG/ML Sodium Level 138 135-145 MMOL/L Potassium Level 3.8 3.6-5.0 MMOL/L Chloride Level 101 98-107 MMOL/L Carbon Dioxide Level 28 21-32 MMOL/L Anion Gap 9 5-14 MMOL/L Blood Urea Nitrogen 14 7-18 MG/DL Creatinine 0.78 0.60-1.30 MG/DL Estimat Glomerular Filtration Rate > 60 BUN/Creatinine Ratio 18 Glucose Level 130 H 70-105 MG/DL Calcium Level 9.4 8.5-10.1 MG/DL Corrected Calcium 9.4 8.5-10.1 MG/DL Magnesium Level 1.5 L 1.6-2.4 MG/DL Total Bilirubin 0.4 0.1-1.0 MG/DL Aspartate Amino Transf (AST/SGOT) 36 H 5-34 U/L Alanine Aminotransferase (ALT/SGPT) 68 H 0-55 U/L Alkaline Phosphatase 63 40-136 U/L Lactate Dehydrogenase 279 H 125-220 U/L Total Creatine Kinase 71 29-168 U/L Creatine Kinase MB 2.3 <6.6 NG/ML Myoglobin 34.2 10.0-92.0 NG/ML Troponin I < 0.028 <0.028 NG/ML C-Reactive Protein High Sensitivity 0.76 H 0.00-0.50 MG/DL B-Type Natriuretic Peptide 337.1 H <100.0 PG/ML Total Protein 7.9 6.4-8.2 GM/DL Albumin 4.0 3.2-4.5 GM/DL Procalcitonin 0.03 <0.10 NG/ML Micro Results Microbiology 01/20/20 Influenza Types A,B Antigen (LINDSAY) - Final, Complete My Orders Orders - EDWIN PINEDO DO Ed Iv/Invasive Line Start (01/20/20 18:01) Ekg Tracing (01/20/20 18:01) O2 (01/20/20 18:01) Monitor-Rhythm Ecg Trace Only (01/20/20 18:01) BNP (01/20/20 18:01) Cbc With Automated Diff (01/20/20 18:01) Comprehensive Metabolic Panel (01/20/20 18:01) Creatine Kinase (01/20/20 18:01) Creatine Kinase Mb (01/20/20 18:01) Hs C Reactive Protein (01/20/20 18:01) Erythrocyte Sedimentation Rate (01/20/20 18:01) Fibrin Degradation Products (01/20/20 18:01) Magnesium (01/20/20 18:01) Protime With Inr (01/20/20 18:01) Partial Thromboplastin Time (01/20/20 18:01) Blood Culture (01/20/20 18:01) Influenza A And B Antigens (01/20/20 18:01) Myoglobin Serum (01/20/20 18:01) Troponin I (01/20/20 18:01) Chest 1 View, Ap/Pa Only (01/20/20 18:01) LDH (01/20/20 18:01) Procalcitonin (Pct) (01/20/20 18:07) Dexamethasone Injection (Decadron Injec (01/20/20 18:30) Dexamethasone Injection (Decadron Injec (01/20/20 18:29) Ct Angio Chest W (01/20/20 19:25) Ceftriaxone For Iv Use (Rocephin For I (01/20/20 19:30) Azithromycin Injection (Zithromax Inject (01/20/20 19:30) Magnesium 1 Gm/100 Ml Ivpb (Magnesium Pina (01/20/20 19:45) Furosemide Injection (Lasix Injection) (01/20/20 19:45) Iohexol Injection (Omnipaque 350 Mg/Ml 1 (01/20/20 20:45) Received Contrast (Hold Metformin- Contr (01/20/20 20:45) Ns (Ivpb) (Sodium Chloride 0.9% Ivpb Bag (01/20/20 20:45) Medications Given in ED Current Medications Medications Dose Ordered Sig/Rico Route Start Time Stop Time Status Last Admin Dose Admin Azithromycin 500 mg/Sodium Chloride 250 ml @ 250 mls/hr ONCE ONCE IV 01/20/20 19:30 01/20/20 20:29 DC 01/20/20 20:30 250 MLS/HR Ceftriaxone Sodium 1000 mg/ Sterile Water 10 ml @ 200 mls/hr ONCE ONCE IV 01/20/20 19:30 01/20/20 19:32 DC 01/20/20 20:30 200 MLS/HR Dexamethasone Sodium Phosphate 6 mg ONCE ONCE IV 01/20/20 18:30 01/20/20 18:31 DC 01/20/20 18:33 6 MG Furosemide 40 mg ONCE ONCE IVP 01/20/20 19:45 01/20/20 19:46 DC 01/20/20 20:30 40 MG Iohexol 100 ml ONCE ONCE IV 01/20/20 20:45 01/20/20 21:14 DC 01/20/20 20:45 100 ML Sodium Chloride 100 ml ONCE ONCE IV 01/20/20 20:45 01/20/20 21:14 DC 01/20/20 20:45 80 ML Vital Signs/I&O 01/20/20 01/20/20 01/20/20 17:55 18:06 23:00 Temp 36.6 36.6 Pulse 103 87 Resp 20 18 B/P (MAP) 145/84 (104) 145/84 (104) Pulse Ox 95 99 99 O2 Delivery Nasal Cannula Nasal Cannula Nasal Cannula O2 Flow Rate 3.00 3.00 3.00 01/21/20 00:00 Intake Total 450 ml Balance 450 ml Capillary Refill : Greater Than 3 Seconds Blood Pressure Mean: 104 Progress Note : Progress Note PLACED IN ISOLATION ROOM PPE WORN AT ALL TIMES PT ADVISED OF CONTINUED NEED FOR QUARANTINE HER SYMPTOMS HAVE NEVER IMPROVED, AND ARE GETTING WORSE, AND SHE IS STILL HAVING FEVER O2 SAT 85% 0N ROOM AIR ON ARRIVAL--DID NOT BRING HOME O2 WITH HER PLACED ON O2 AT 4L/NC AND O2 SATS UP TO 97% GIVEN DECADRON GIVEN ROCEPHIN AND ZITHROMAX NO DETERIORATION IN PT'S CONDITION DURING ER STAY MAINTAINED O2 SATS ON O2 AT 4L/NC NO DYSPNEA NO COUGH PT ADAMANTLY REFUSES ADMIT. SPACER GIVEN TO PATIENT AND INSTRUCTED ON USE ECG Initial ECG Impression Date: Jan 20, 2020 Initial ECG Impression Time: 18:23 Initial ECG Rate: 71 Initial ECG Rhythm: Normal Sinus Initial ECG Impression: Nonspecific Changes Diagnostic Imaging Comments CXR--PER RADIOLOGIST REPORT 1923 FINDINGS: There are patchy bilateral interstitial and airspace opacities. No pleural effusion or pneumothorax. Heart size is normal. Left atrial appendage is noted. There is prosthetic aortic valve. Median sternotomy wires are aligned. IMPRESSION: Patchy bilateral interstitial and airspace opacities consistent with an acute infection CT CHEST ANGIOGRAM--PER RADIOLOGIST REPORT AT 2110 IMPRESSION: 1. The appearance of the chest has worsened since the prior study as diffuse alveolar/interstitial pulmonary infiltrates have developed, bilaterally. This does suggest pneumonia/atelectasis and is most likely related to the patient's diagnosis of Covid-19. 2. There is no evidence for pulmonary embolus. The aorta is not well opacified and consequently difficult to assess for dissection. 3. There is cardiomegaly and coronary artery disease. 4. The mediastinal adenopathy, noted previously, does not appear to changed significantly. Reviewed: Reviewed by Me Departure Impression Primary Impression: Pneumonia due to COVID-19 virus Additional Impressions: Acute on chronic respiratory failure Hypomagnesemia Mild congestive heart failure Disposition: HOME, SELF-CARE Condition: Stable Departure-Patient Inst. Referrals: TATYANA DIAZ DO (PCP/Family) Primary Care Physician Patient Instructions: Coronavirus Disease 2019 (COVID-19) (DC), Heart Failure, Adult (DC), Low Magnesium Level (DC), Pneumonia, Adult (DC), Preventing the Spread of an Infectious Disease Add. Discharge Instructions: LOTS OF CLEAR LIQUIDS TYLENOL AND MOTRIN NEEDED FOR PAIN OR FEVER WEAR YOUR HOME OXYGEN AT 2-4 LITERS ALL THE TIME USE YOUR ALBUTEROL INHALER WITH A SPACER AT ALL TIMES--2-4 PUFFS EVERY 4 HOURS NEEDED FOR BREATHING TAKE 325 MG ASPIRIN DAILY QUARANTINE FOR AN ADDITIONAL 7 DAYS--OR LONGER IF NEEDED, UNTIL CLEARED BY YOUR DR. FOLLOW UP WITH DR. DIAZ IN 2-3 DAYS FOR FURTHER CARE RETURN TO ER IF YOUR SYMPTOMS WORSEN All discharge instructions reviewed with patient and/or family. Voiced understanding. Scripts Magnesium Oxide (Mag-Oxide) 200 Mg Tablet 400 MG PO DAILY, #20 TAB Prov: EDWIN PINEDO DO 01/20/20 Benzonatate (TESSALON PERLES) 100 Mg Capsule 100 MG PO TID, #30 CAP Prov: EDWIN PINEDO DO 01/20/20 Guaifenesin/Dextromethorphan (Mucinex Dm ER 1,200-60 mg Tab) 1 Each Tbmp.12hr 1 EACH PO BID, #20 EA Prov: EDWIN PINEDO DO 01/20/20 Fluticasone/Salmeterol (Advair 250-50 Diskus) 1 Each Blst.w.dev 2 PUFF IH BID, #1 EA Prov: EDWIN PINEDO DO 01/20/20 Dexamethasone (Decadron) 6 Mg Tablet 6 MG PO DAILY, #10 TAB Prov: EDWIN PINEDO DO 01/20/20 Azithromycin (Zithromax) 500 Mg Tablet 500 MG PO DAILY for 5 Days, #5 TAB Prov: EDWIN PINEDO DO 01/20/20 Cefdinir (Cefdinir) 300 Mg Capsule 300 MG PO BID, #20 CAP Prov: EDWIN PINEDO DO 01/20/20 EDWIN PINEDO DO Jan 20, 2020 18:39
[2020-01-20 18:40] LABS: BILIRUBIN,TOTAL 0.4 MG/DL (0.1-1.0); CARBON DIOXIDE 28 MMOL/L (21-32); FIBRIN DEGRADATION PRODUCTS 0.72 UG/ML (0.00-0.49); PROTHROMBIN TIME PATIENT 13.4 SEC (12.2-14.7)
[2020-01-20 18:42] LABS: ALKALINE PHOSPHATASE 63 U/L (40-136); CREATININE SERUM 0.78 MG/DL (0.60-1.30); GFR ESTIMATED > 60
[2020-01-20 18:43] LABS: BUN/CREATININE RATIO 18
[2020-01-20 18:45] LABS: ALANINE AMINOTRANSFERASE 68 U/L (0-55); ERYTHROCYTE SEDIMENTATION RATE 43 MM/HR (0-30); MAGNESIUM 1.5 MG/DL (1.6-2.4)
[2020-01-20 18:46] LABS: CREATINE KINASE 71 U/L (29-168)
[2020-01-20 18:53] LABS: CREATINE KINASE MB 2.3 NG/ML (<6.6)
--- NOTE | 2020-01-20 19:11 | Diagnostic Imaging Report ---
EXAMINATION: Chest 1 view. HISTORY: Dyspnea. COMPARISON: 03/04/2019. FINDINGS: There are patchy bilateral interstitial and airspace opacities. No pleural effusion or pneumothorax. Heart size is normal. Left atrial appendage is noted. There is prosthetic aortic valve. Median sternotomy wires are aligned. IMPRESSION: Patchy bilateral interstitial and airspace opacities consistent with an acute infection. Dictated by: Dictated on workstation # [id number]
[2020-01-20] MEDS ORDERED: AZITHROMYCIN INJECTION 500 MG in NS (IVPB) 250 ML IV ONE (19:30)
[2020-01-20] MEDS ORDERED: cefTRIAXone FOR IV USE 1,000 MG in WATER (STERILE) FOR INJECTION 10 ML IV ONE (19:30)
[2020-01-20] MEDS ORDERED: FUROSEMIDE 40 MG/4 ML INJ (LASIX) IVP ONE (19:45)
[2020-01-20] MEDS: MAGNESIUM 1 GM/100 ML IVPB 100 ML IV SCH ×2 (20:30→21:40)
[2020-01-20] MEDS ORDERED: HOLD METFORMIN - RECEIVED CONTRAST 20 ML VIAL IV SCH (20:45)
[2020-01-20] MEDS ORDERED: IOHEXOL 350 MG/ML 100 ML (OMNIPAQUE 350) VIAL IV ONE (20:45)
[2020-01-20] MEDS ORDERED: NS 100 ML (IVPB) BAG IV ONE (20:45)
--- NOTE | 2020-01-20 21:04 | Diagnostic Imaging Report ---
PROCEDURE: CT angiography of the chest with contrast. TECHNIQUE: Multiple contiguous axial images were obtained through the chest after uneventful bolus administration of intravenous contrast. 3D reconstructed CTA MIP acquisitions were also performed. Auto Exposure Controls were utilized during the CT exam to meet ALARA standards for radiation dose reduction. INDICATION: Shortness of breath. Positive for Covid-19. FINDINGS: The CT chest exam of 10/28/2019 noted stable mediastinal adenopathy but failed to show any sign of an acute abnormality. On this exam, the mediastinal adenopathy does not seem to have changed significantly. The aorta is not well opacified and consequently difficult to assess. It seems similar in size to the prior exam. There is no defect within the pulmonary arteries to indicate a pulmonary embolus. However, in the interval since the prior study diffuse alveolar/interstitial pulmonary infiltrates have developed in both lungs. This does suggest pneumonia/atelectasis and would be consistent with the patient's diagnosis of Covid-19. The heart size is stable. Coronary artery calcifications are again noted. There is no obvious breast mass. The thyroid gland is unremarkable. The sections through the upper abdomen failed to show any sign of an acute abnormality. The bone windows are unremarkable for a fracture or for a destructive lesion. IMPRESSION: 1. The appearance of the chest has worsened since the prior study as diffuse alveolar/interstitial pulmonary infiltrates have developed, bilaterally. This does suggest pneumonia/atelectasis and is most likely related to the patient's diagnosis of Covid-19. 2. There is no evidence for pulmonary embolus. The aorta is not well opacified and consequently difficult to assess for dissection. 3. There is cardiomegaly and coronary artery disease. 4. The mediastinal adenopathy, noted previously, does not appear to have changed significantly. Dictated by: Dictated on workstation # [id number]
[2020-01-20] MEDS ORDERED: BENZ100C18 PO (21:24)
[2020-01-20] MEDS ORDERED: MAGN200T8 PO (21:24)
[2020-01-20] MEDS ORDERED: FLUT1DIS26 IH (21:24)
[2020-01-20] MEDS ORDERED: AZIT500T PO (21:24)
[2020-01-20] MEDS ORDERED: CEFD300C3 PO (21:24)
[2020-01-20] MEDS ORDERED: DEXA6TAB6 PO (21:24)
[2020-01-20] MEDS ORDERED: GUAI1TBM19 PO (21:24)
[2020-01-20 23:00] VITALS: BP 145/84
== END 2020-01-20 22:58 | disposition home or self-care (01) ==
LOC: EDUNIT# 17:43 → ER 17:45
DX: U07.1 COVID-19 (principal); J12.89 Other viral pneumonia; J96.20 Acute and chronic respiratory failure, unspecified whether with hypoxia or hypercapnia; E83.42 Hypomagnesemia; I11.0 Hypertensive heart disease with heart failure; I50.9 Heart failure, unspecified; E11.9 Type 2 diabetes mellitus without complications; M10.9 Gout, unspecified; Z79.84 Long term (current) use of oral hypoglycemic drugs; Z87.891 Personal history of nicotine dependence; Z88.5 Allergy status to narcotic agent
CPT/HCPCS: 36415; 71045; 71275; 80053; 82550; 82553; 83615; 83735; 83874; 83880; 84145; 84484; 85025; 85379; 85610; 85652; 85730; 86141; 87040; 87804; 93041

== ENCOUNTER → 2020-03-16 | Outpatient (CLI) | payer MEDICARE, OTHER ==
[~2020-03-16] MED LIST changes: +AZIT500T PO; +BENZ100C18 PO; +CEFD300C3 PO; +DEXA6TAB6 PO; +FLUT1DIS26 IH; +GUAI1TBM19 PO; +MAGN200T8 PO
== END ==
LOC: CARD 10:48
PROVIDERS: ATTEND Nurse Practitioner Family
DX: I08.3 Combined rheumatic disorders of mitral, aortic and tricuspid valves (principal); Z95.2 Presence of prosthetic heart valve
CPT/HCPCS: 93306

== ENCOUNTER → 2020-03-16 | Outpatient (CLI) | payer MEDICARE, OTHER ==
--- NOTE | 2020-03-16 12:43 | Diagnostic Imaging Report ---
INDICATION: Routine screening. Comparison is made to prior mammogram from 03/05/2018 and 04/26/2016. 2-D and 3-D bilateral screening mammography was performed with CAD. Scattered fibroglandular densities are identified bilaterally. There are benign calcifications in both breasts. No mass or malignant appearing microcalcifications are seen. Axillae are unremarkable. IMPRESSION: BI-RADS Category 2 No mammographic features suspicious for malignancy are identified. ACR BI-RADS Category 2: Benign findings. Result letter will be mailed to the patient. Note: At least 10% of breast cancer is not imaged by mammography. Dictated by: Dictated on workstation # [id number]
== END ==
LOC: RAD 10:49
PROVIDERS: ATTEND Family Medicine
DX: Z12.31 Encounter for screening mammogram for malignant neoplasm of breast (principal)
CPT/HCPCS: 77063; 77067

== ENCOUNTER → 2020-03-30 | Outpatient (CLI) | payer MEDICARE, OTHER | LOC: RT 12:38 | PROVIDERS: ATTEND Internal Medicine Critical Care Medicine | DX: J96.11 Chronic respiratory failure with hypoxia (principal); J84.9 Interstitial pulmonary disease, unspecified | CPT/HCPCS: 94621 ==

== ENCOUNTER 2021-09-16 20:47 | Emergency (ER) | payer MEDICARE, OTHER ==
[~2021-09-16] VITALS: Ht 158 cm; Wt 64.0 kg
[~2021-09-16 20:47] MED LIST changes: +CALC600T91 PO; -CLC600T PO; -VITA-235 PO; +VITA-261 PO
[2021-09-16] MEDS ORDERED: ASPIRIN 81 MG CHEW (CHILDREN'S ASA) PO ONE (21:00)
--- NOTE | 2021-09-16 21:05 | ED Chest Pain ---
General Chief Complaint: Cardiac/General Problems Stated Complaint: TACHYCHARDIA,DIZZINESS Nursing Triage Note: BROUGHT IN BY [facility] FOR A-FIB RVR. EMS REPORTS PT CONVERTED ENROUTE. Source: patient Exam Limitations: no limitations History of Present Illness Date Seen by Provider: Sep 16, 2021 Time Seen by Provider: 21:00 Initial Comments Patient is a 76-year-old female with a history of CHF, mitral valve stenosis, aortic valve replacements who presents to the ED with tachycardia and dizziness. This started about 10 minutes before 7. Started feeling dizzy and heart palpitation with a fast heart rate. She called EMS. EMS noted patient in A. fib with RVR. Was given a liter fluid and oxygen at 6 L and converted to sinus bradycardia. On arrival she has no current complaints. She states she has had similar symptoms in the past but it resolved on its own and placed on a heart monitor over the past week by Dr Flowers. She does take a baby aspirin daily. History of mitral and aortic leaky valve. She does have a bovine aortic valve placed in 2018. Patient has a calcified mitral valve and is currently on oxygen for this. Not able to perform surgery secondary to her anatomy. She denies of any fever, chills, nausea vomiting, diarrhea. Denies history of coronary artery disease, COPD. Allergies and Home Medications Allergies Coded Allergies: hydrocodone (Verified Allergy, Unknown, Vomiting, 02/26/19) Patient Home Medication List Home Medication List Reviewed: Yes Allopurinol (Allopurinol) 100 Mg Tablet, 100 MG PO DAILY, (Reported) Entered as Reported by: MARY KAY GLOVER on 09/10/181206 Azithromycin (Zithromax) 500 Mg Tablet, 500 MG PO DAILY Prescribed by: EDWIN PINEDO on 01/20/202123 Benzonatate (Tessalon Perles) 100 Mg Capsule, 100 MG PO TID Prescribed by: EDWIN PINEDO on 01/20/202123 Calcium Carbonate (Calcium) 600 Mg Tablet, 600 MG PO DAILY, (Reported) Entered as Reported by: MARY KAY GLOVER on 09/10/181206 Cefdinir (Cefdinir) 300 Mg Capsule, 300 MG PO BID Prescribed by: EDWIN PINEDO on 01/20/202123 Cetirizine HCl (Zyrtec) 10 Mg Tablet, 10 MG PO DAILY, (Reported) Entered as Reported by: PAULINA MADDOX on 02/26/19 0950 Cholecalciferol (Vitamin D3) (Vitamin D-3) 2,000 Unit Tablet, 2,000 UNIT PO DAILY, (Reported) Entered as Reported by: MARY KAY GLOVER on 09/10/181206 Dexamethasone (Decadron) 6 Mg Tablet, 6 MG PO DAILY Prescribed by: EDWIN PINEDO on 01/20/202123 Ezetimibe (Zetia) 10 Mg Tablet, 10 MG PO DAILY, (Reported) Entered as Reported by: MARY KAY GLOVER on 09/10/18 120 Fluticasone Propionate (Flonase Allergy Relief) 9.9 Ml [place].susp, 1 SPRAY NS DAILY, (Reported) Entered as Reported by: PAULINA MADDOX on 02/26/19 0950 Fluticasone/Salmeterol (Advair 250-50 Diskus) 1 Each Blst.w.dev, 2 PUFF IH BID Prescribed by: EDWIN PINEDO on 01/20/202123 Guaifenesin/Dextromethorphan (Mucinex Dm ER 1,200-60 mg Tab) 1 Each Tbmp.12hr, 1 EACH PO BID Prescribed by: EDWIN PINEDO on 01/20/202123 L.acidoph & Paracasei,B.lactis (Probiotic) 1 Each Capsule, 1 EACH PO DAILY, (Reported) Entered as Reported by: MARY KAY GLOVER on 09/10/181206 Losartan Potassium (Losartan Potassium) 25 Mg Tablet, 25 MG PO DAILY, (Reported) Entered as Reported by: MARY KAY GLOVER on 09/10/181206 Magnesium Oxide (Mag-Oxide) 200 Mg Tablet, 400 MG PO DAILY Prescribed by: EDWIN PINEDO on 01/20/202123 Metformin HCl (Metformin HCl) 1,000 Mg Tablet, 1,000 MG PO BID, (Reported) Entered as Reported by: MARY KAY GLOVER on 09/10/181206 Metoprolol Succinate (Metoprolol Succinate) 25 Mg Tab.er.24h, 25 MG PO BID, (Reported) Entered as Reported by: MARY KAY GLOVER on 09/10/181206 Multivitamin (Daily Value) 1 Each Tablet, 1 EACH PO DAILY, (Reported) Entered as Reported by: MARY KAY GLOVER on 09/10/181206 [place]-3 Fatty Acids ([place]-3) 1,000 Mg Capsule, 1,000 MG PO DAILY, (Reported) Entered as Reported by: MARY KAY GLOVER on 09/10/181206 Vitamin E (Dl,Tocopheryl Acet) (Vitamin E) 400 Unit Capsule, 400 UNIT PO DAILY, (Reported) Entered as Reported by: MARY KAY GLOVER on 09/10/181206 Review of Systems Review of Systems Constitutional: No chills, No diaphoresis, No malaise, No weakness EENTM: No Eye Pain, No Mouth Pain, No Mouth Swelling Respiratory: Denies Cough Cardiovascular: Denies Chest Pain, Denies Edema; Irregular Heart Rate, Palpitations Gastrointestinal: Denies Abdominal Pain, Denies Blood Streaked Stools, Denies Diarrhea, Denies Difficulty Swallowing, Denies Nausea Genitourinary: Denies Burning, Denies Discharge Musculoskeletal: No back pain Skin: No change in color, No change in hair/nails Psychiatric/Neurological: Denies Anxiety, Denies Depressed All Other Systems Reviewed Negative Unless Noted: Yes Past Wnzpfeo-Ethpsp-Qevfro Hx Patient Social History Tobacco Use?: No Smoking Status: Former Smoker Substance use?: No Alcohol Use?: No Pt feels they are or have been: No Immunizations Up To Date Tetanus Booster (TDap): Unknown PED Vaccines UTD: Yes Seasonal Allergies Seasonal Allergies: No Past Medical History Surgery/Hospitalization HX: AVR, EYE, TUBAL HOME O2, HTN, GOUT, ARTHRITIS, GERD, NIDDM, Surgeries: Yes (AORTIC VALVE REPLACEMENT/BOVINE VALVE 2013;CATARACT SURGERY) Eye Surgery, Tubal Ligation, Valve Replacement Respiratory: Yes (CHRONIC DYSPNEA AND COUGH--O2 AT 2L AT HS AND PRN) Cardiac: Yes (AORTIC VALVE REPLACEMENT / BOVINE VALVE 2013) Heart Murmur, Hypertension, Valvular Heart Disease Neurological: No [employer] History: Tubal Ligation, Menopausal Genitourinary: No Gastrointestinal: Yes Gastroesophageal Reflux Musculoskeletal: Yes Arthritis, Gout Endocrine: Yes Diabetes, Non-Insulin dep HEENT: Yes (cataracts removed) Cancer: No Psychosocial: No Integumentary: No Blood Disorders: Yes (anemia) Physical Exam Vital Signs Vital Signs - First Documented 09/16/21 20:48 Temp 36.3 Pulse 56 Resp 20 B/P (MAP) 121/56 (77) Pulse Ox 97 O2 Delivery Nasal Cannula O2 Flow Rate 2.00 Capillary Refill : Less Than 3 Seconds Height, Weight, BMI Height: 5'2.00" Weight: 150lbs. 0.0oz. 68.287327lo; 25.00 BMI Method: General Appearance: No Apparent Distress, WD/WN HEENT: PERRL/EOMI, TMs Normal, Normal ENT Inspection, Pharynx Normal Neck: Full Range of Motion, Normal Inspection, Non Tender, Supple Respiratory: Chest Non Tender, Lungs Clear, Normal Breath Sounds, No Accessory Muscle Use, No Respiratory Distress Cardiovascular: Regular Rate, Rhythm, No Edema, No Gallop, No JVD Gastrointestinal: Normal Bowel Sounds, No Organomegaly, No Pulsatile Mass, Non Tender Extremity: Normal Capillary Refill, Normal Inspection, Normal Range of Motion, Non Tender Neurologic/Psychiatric: Alert, Oriented x3, No Motor/Sensory Deficits, Normal Mood/Affect Skin: Normal Color, Warm/Dry Progress/Results/Core Measures Results/Orders Lab Results Laboratory Tests Test 09/16/21 20:52 Range/Units White Blood Count 8.9 4.3-11.0 10^3/uL Red Blood Count 3.51 L 3.80-5.11 10^6/uL Hemoglobin 10.9 L 11.5-16.0 g/dL Hematocrit 33 L 35-52 % Mean Corpuscular Volume 93 80-99 fL Mean Corpuscular Hemoglobin 31 25-34 pg Mean Corpuscular Hemoglobin Concent 34 32-36 g/dL Red Cell Distribution Width 14.2 10.0-14.5 % Platelet Count 225 130-400 10^3/uL Mean Platelet Volume 10.7 9.0-12.2 fL Immature Granulocyte % (Auto) 1 % Neutrophils (%) (Auto) 65 42-75 % Lymphocytes (%) (Auto) 23 12-44 % Monocytes (%) (Auto) 8 0-12 % Eosinophils (%) (Auto) 3 0-10 % Basophils (%) (Auto) 1 0-10 % Neutrophils # (Auto) 5.8 1.8-7.8 10^3/uL Lymphocytes # (Auto) 2.0 1.0-4.0 10^3/uL Monocytes # (Auto) 0.7 0.0-1.0 10^3/uL Eosinophils # (Auto) 0.3 0.0-0.3 10^3/uL Basophils # (Auto) 0.1 0.0-0.1 10^3/uL Immature Granulocyte # (Auto) 0.0 0.0-0.1 10^3/uL Prothrombin Time 14.5 12.2-14.7 SEC INR Comment 1.1 0.8-1.4 Activated Partial Thromboplast Time 31 24-35 SEC Sodium Level 137 135-145 MMOL/L Potassium Level 4.9 3.6-5.0 MMOL/L Chloride Level 102 98-107 MMOL/L Carbon Dioxide Level 19 L 21-32 MMOL/L Anion Gap 16 H 5-14 MMOL/L Blood Urea Nitrogen 43 H 7-18 MG/DL Creatinine 1.47 H 0.60-1.30 MG/DL Estimat Glomerular Filtration Rate 37 BUN/Creatinine Ratio 29 Glucose Level 157 H 70-105 MG/DL Calcium Level 10.1 8.5-10.1 MG/DL Corrected Calcium 10.3 H 8.5-10.1 MG/DL Magnesium Level 1.6 1.6-2.4 MG/DL Total Bilirubin 0.5 0.1-1.0 MG/DL Aspartate Amino Transf (AST/SGOT) 44 H 5-34 U/L Alanine Aminotransferase (ALT/SGPT) 37 0-55 U/L Alkaline Phosphatase 94 40-136 U/L Myoglobin 60.3 10.0-92.0 NG/ML Troponin I < 0.028 <0.028 NG/ML B-Type Natriuretic Peptide 1441.7 H <100.0 PG/ML Total Protein 7.6 6.4-8.2 GM/DL Albumin 3.8 3.2-4.5 GM/DL My Orders Orders - LULA BROWN Cbc With Automated Diff (09/16/21 20:59) Magnesium (09/16/21 20:59) Ekg Tracing (09/16/21 20:59) Comprehensive Metabolic Panel (09/16/21 20:59) Myoglobin Serum (09/16/21 20:59) Protime With Inr (09/16/21 20:59) Partial Thromboplastin Time (09/16/21 20:59) Ed Iv/Invasive Line Start (09/16/21 20:59) Bnp [place] (09/16/21 20:59) Troponin I [place] (09/16/21 20:59) Aspirin Chewable Tablet (Baby Aspirin Ch (09/16/21 21:00) Medications Given in ED Vital Signs/I&O 09/16/21 09/16/21 20:48 22:24 Temp 36.3 36.5 Pulse 56 47 Resp 20 16 B/P (MAP) 121/56 (77) 129/43 Pulse Ox 97 99 O2 Delivery Nasal Cannula Nasal Cannula O2 Flow Rate 2.00 2.00 2.00 Comment Sinus bradycardia with occasional supraventricular premature complexes, low QRS voltage in extremity leads, 55 bpm, QRS duration 93 MS, QTc 501 MS. Departure Communication (PCP) Patient with a bovine aortic valve, stenotic mitral valve who presents to ED with tachycardia and dizziness. Patient was found to be in A. fib with RVR this evening. On the travel to the ED patient converted to normal sinus rhythm. Patient was signed out bradycardic on arrival. On arrival she has no current complaints. She was given a full aspirin. She does take a baby aspirin daily. Currently on 2 L oxygen secondary to her mitral valve stenosis. She follows up with cardiology at [facility] Dr. Mcdermott. Patient takes 20 mg Lasix daily. Currently on metoprolol and amlodipine. She states she had a echocardiogram done that showed a decrease ejection fraction. Not able to locate these results. She states they are wanting a lower ejection fraction to help compensate for the mitral valve stenosis? She did have a change in her BNP to 1400 from 300 from a previous visit. Echocardiogram in 2020 showed ejection fraction of 60 to 65%. She had normal troponin today. Appears to be in acute kidney injury. She was given IV fluids in route by EMS. No fluids here. She denies of any increased leg swelling. She does have a [employer] heart monitor currently carmen toring for A. fib with a similar episode recently. Aifb likely secondary to the mitral valve disease. Patient had a creatinine of 1.47 here. Elevated BNP and acute kidney injury likely secondary to some form of fluid overload however her presentation does not present like a CHF such as increasing oxygen, or edema. She is currently on 2 L. She denies feeling short of breath or having any chest pain. No appreciation of significant leg swelling. No evidence of arrhythmia here. Discussed with patient potential observation with IV Lasix. She states she does have Lasix at home and she can increase her dose and follow-up with her harvest worker. Discussed patient with Dr. Sheffield who felt like patient could go home as well unless presentation is concerning for a CHF exacerbation. Her presentation does not appear to be a CHF exacerbation secondary to her complaints. She agrees for outpatient follow-up at this time. She once again refused chest x-ray secondary to her monitor on her chest. It was recommended by her harvest worker without any x-ray if she has the monitor on? Her lungs sound clear bilateral and did not sound congested, crackles. Discussed with patient and family if any worsening symptoms return back to ED for further evaluation. Concerned that patient mitral valve stenosis is likely worsening. She could be developing heart strain, pulmonary hypertension. Discussed with patient that A. fib would be of concern losing the atrial kick resulting in worsening CHF. Discuss increasing her lasix for next three days and recheck her lab work with her harvest worker or pcp of AI and BNP. Impression Primary Impression: Paroxysmal A-fib Additional Impressions: BILLY (acute kidney injury) CHF (congestive heart failure) Disposition: 01 HOME, SELF-CARE Condition: Stable Departure-Patient Inst. Decision time for Depature: 22:18 Referrals: TATYANA DIAZ DO (PCP/Family) Primary Care Physician Patient Instructions: Heart Failure ED LULA BROWN Sep 16, 2021 21:05
[2021-09-16 21:08] LABS: ALBUMIN 3.8 GM/DL (3.2-4.5); POTASSIUM 4.9 MMOL/L (3.6-5.0)
[2021-09-16 21:09] LABS: CALCIUM 10.1 MG/DL (8.5-10.1)
[2021-09-16 21:10] LABS: TOTAL PROTEIN 7.6 GM/DL (6.4-8.2)
[2021-09-16 21:12] LABS: BILIRUBIN,TOTAL 0.5 MG/DL (0.1-1.0)
[2021-09-16 21:14] LABS: CREATININE SERUM 1.47 MG/DL (0.60-1.30)
[2021-09-16 21:16] LABS: BASOPHILS # (AUTO) 0.1 10^3/uL (0.0-0.1); BASOPHILS % (AUTO) 1 % (0-10); EOSINOPHILS # (AUTO) 0.3 10^3/uL (0.0-0.3); EOSINOPHILS % (AUTO) 3 % (0-10); HEMATOCRIT 33 % (35-52); HEMOGLOBIN 10.9 g/dL (11.5-16.0); LYMPHOCYTES % (AUTO) 23 % (12-44); MEAN CORPUSCULAR HEMOGLOBIN 31 pg (25-34); MEAN CORPUSCULAR HGB CONC 34 g/dL (32-36); MEAN CORPUSCULAR VOLUME 93 fL (80-99); MEAN PLATELET VOLUME 10.7 fL (9.0-12.2); MONOCYTES # (AUTO) 0.7 10^3/uL (0.0-1.0); MONOCYTES % (AUTO) 8 % (0-12); NEUTROPHILS # (AUTO) 5.8 10^3/uL (1.8-7.8); NEUTROPHILS % (AUTO) 65 % (42-75); PLATELET COUNT 225 10^3/uL (130-400); WHITE BLOOD COUNT 8.9 10^3/uL (4.3-11.0)
[2021-09-16 21:17] LABS: MAGNESIUM 1.6 MG/DL (1.6-2.4)
[2021-09-16 21:34] LABS: INR 1.1 (0.8-1.4); PROTHROMBIN TIME PATIENT 14.5 SEC (12.2-14.7)
[2021-09-16 22:24] VITALS: BP 129/43
== END 2021-09-16 22:28 | disposition home or self-care (01) ==
LOC: EDUNIT# 20:47 → ER 20:48
DX: I48.0 Paroxysmal atrial fibrillation (principal); N17.9 Acute kidney failure, unspecified; I50.9 Heart failure, unspecified; I11.0 Hypertensive heart disease with heart failure; Z87.891 Personal history of nicotine dependence
CPT/HCPCS: 36415; 80053; 83735; 83874; 83880; 84484; 85025; 85610; 85730; 93005

== ENCOUNTER → 2021-12-21 | Outpatient (CLI) | payer MEDICARE, OTHER ==
[~2021-12-21] MED LIST changes: +RT-ALBUTEROL SULF 2.5 MG/3 ML PRE-MIX VIAL INH ONE
== END ==
LOC: RT 14:08
PROVIDERS: ATTEND Internal Medicine Critical Care Medicine
DX: J84.9 Interstitial pulmonary disease, unspecified (principal); J96.11 Chronic respiratory failure with hypoxia
CPT/HCPCS: 94060; 94621; 94726; 94729

== ENCOUNTER 2022-03-13 13:03 | Emergency (ER) | payer MEDICARE, OTHER ==
[~2022-03-13 13:03] MED LIST changes: -RT-ALBUTEROL SULF 2.5 MG/3 ML PRE-MIX VIAL INH ONE
[2022-03-13 13:46] LABS: BASOPHILS # (AUTO) 0.1 10^3/uL (0.0-0.1); BASOPHILS % (AUTO) 1 % (0-10); EOSINOPHILS # (AUTO) 0.3 10^3/uL (0.0-0.3); EOSINOPHILS % (AUTO) 3 % (0-10); HEMATOCRIT 36 % (35-52); HEMOGLOBIN 11.9 g/dL (11.5-16.0); LYMPHOCYTES # (AUTO) 1.3 10^3/uL (1.0-4.0); LYMPHOCYTES % (AUTO) 14 % (12-44); MEAN CORPUSCULAR HEMOGLOBIN 32 pg (25-34); MEAN CORPUSCULAR HGB CONC 33 g/dL (32-36); MEAN CORPUSCULAR VOLUME 98 fL (80-99); MEAN PLATELET VOLUME 10.7 fL (9.0-12.2); MONOCYTES # (AUTO) 0.8 10^3/uL (0.0-1.0); MONOCYTES % (AUTO) 9 % (0-12); NEUTROPHILS # (AUTO) 6.8 10^3/uL (1.8-7.8); NEUTROPHILS % (AUTO) 73 % (42-75); PLATELET COUNT 215 10^3/uL (130-400); WHITE BLOOD COUNT 9.3 10^3/uL (4.3-11.0)
--- NOTE | 2022-03-13 13:46 | ED General ---
General Chief Complaint: Back Problems Stated Complaint: LT ARM PAIN | Nursing Triage Note: PT TO RM 7 BY WC WITH HOME O2 WITH C/O L ARM PAIN, NECK PAIN, AND BACK PAIN X1 WEEK. PT STATES IT LESS WHEN SHE LAYS DOWN AND HURTS WORSE WHEN PRESSURE IS APPLIED Source of Information: Patient, Caregiver History of Present Illness Date Seen by Provider: Mar 13, 2022 Time Seen by Provider: 13:12 Initial Comments 76-year-old female presents with [id number] with complaints of left arm pain/numbness starting in left shoulder radiating into left upper back and left neck, increasing in severity over the last week. Reports pain is intermittent, denies shooting pain, reports a flutter like feeling in the arm at times. States pain remains the same intensity when it occurs. There is no tenderness to palpation normal ROM. Reports improvement in pain when lying on the left side. Reports dizziness with standing but states this is normal for her. When she stands still for a few seconds she feels better. She wears 2 L of oxygen at all times due to heart failure. Reports a history of smoking, quit over 27 years ago, smoked for 15 years. Denies any lung conditions. She is diabetic, currently on metformin and Jardiance. Her PCP is reducing her metformin due to decreased kidney function. She denies chest pain, worsening shortness of breath, abdominal pain, N/V/D, reports her leg edema is better than normal. She takes metformin, Jardiance, losartan, Lasix, potassium chloride, metoprolol. Timing/Duration: 1 Week Modifying Factors: improves with Other (lying on left side/arm) Allergies and Home Medications Allergies Coded Allergies: hydrocodone (Verified Allergy, Unknown, Vomiting, 02/26/19) Patient Home Medication List Home Medication List Reviewed: Yes Allopurinol (Allopurinol) 100 Mg Tablet, 100 MG PO DAILY, (Reported) Entered as Reported by: MARY KAY GLOVER on 09/10/18 120 Azithromycin (Zithromax) 500 Mg Tablet, 500 MG PO DAILY Prescribed by: EDWIN PINEDO on 01/20/202123 Benzonatate (Tessalon Perles) 100 Mg Capsule, 100 MG PO TID Prescribed by: EDWIN PINEDO on 01/20/202123 Calcium Carbonate (Calcium) 600 Mg Tablet, 600 MG PO DAILY, (Reported) Entered as Reported by: MARY KAY GLOVER on 09/10/18 120 Cefdinir (Cefdinir) 300 Mg Capsule, 300 MG PO BID Prescribed by: EDWIN PINEDO on 01/20/202123 Cetirizine HCl (Zyrtec) 10 Mg Tablet, 10 MG PO DAILY, (Reported) Entered as Reported by: PAULINA MADDOX on 02/26/19 0950 Cholecalciferol (Vitamin D3) (Vitamin D-3) 2,000 Unit Tablet, 2,000 UNIT PO DA NARGIS, (Reported) Entered as Reported by: MARY KAY GLOVER on 09/10/181206 Dexamethasone (Decadron) 6 Mg Tablet, 6 MG PO DAILY Prescribed by: EDWIN PINEDO on 01/20/202123 Ezetimibe (Zetia) 10 Mg Tablet, 10 MG PO DAILY, (Reported) Entered as Reported by: MARY KAY GLOVER on 09/10/18 120 Fluticasone Propionate (Flonase Allergy Relief) 9.9 Ml Hitchins.susp, 1 SPRAY NS DAILY, (Reported) Entered as Reported by: PAULINA MADDOX on 02/26/19 0950 Fluticasone/Salmeterol (Advair 250-50 Diskus) 1 Each Blst.w.dev, 2 PUFF IH BID Prescribed by: EDWIN PINEDO on 01/20/202123 Guaifenesin/Dextromethorphan (Mucinex Dm ER 1,200-60 mg Tab) 1 Each Tbmp.12hr, 1 EACH PO BID Prescribed by: EDWIN PINEDO on 01/20/202123 L.acidoph & Paracasei,B.lactis (Probiotic) 1 Each Capsule, 1 EACH PO DAILY, (Reported) Entered as Reported by: MARY KAY GLOVER on 09/10/181206 Losartan Potassium (Losartan Potassium) 25 Mg Tablet, 25 MG PO DAILY, (Reported) Entered as Reported by: MARY KAY GLOVER on 09/10/181206 Magnesium Oxide (Mag-Oxide) 200 Mg Tablet, 400 MG PO DAILY Prescribed by: EDWIN PINEDO on 01/20/202123 Metformin HCl (Metformin HCl) 1,000 Mg Tablet, 1,000 MG PO BID, (Reported) Entered as Reported by: MARY KAY GLOVER on 09/10/18 1207 Metoprolol Succinate (Metoprolol Succinate) 25 Mg Tab.er.24h, 25 MG PO BID, (Reported) Entered as Reported by: MARY KAY GLOVER on 09/10/18 1207 Multivitamin (Daily Value) 1 Each Tablet, 1 EACH PO DAILY, (Reported) Entered as Reported by: MARY KAY GLOVER on 09/10/18 1207 Madill-3 Fatty Acids (Madill-3) 1,000 Mg Capsule, 1,000 MG PO DAILY, (Reported) Entered as Reported by: MARY KAY GLOVER on 09/10/18 1207 Vitamin E (Dl,Tocopheryl Acet) (Vitamin E) 400 Unit Capsule, 400 UNIT PO DAILY, (Reported) Entered as Reported by: MARY KAY GLOVER on 09/10/18 1207 Review of Systems Review of Systems Constitutional: see HPI Past Ekqsgnx-Rfainc-Eehvxa Hx Patient Social History Tobacco Use?: No Smoking Status: Former Smoker Use of E-Cig and/or Vaping dev: No Substance use?: No Alcohol Use?: No Pt feels they are or have been: No Immunizations Up To Date Tetanus Booster (TDap): Unknown PED Vaccines UTD: Yes Influenza Vaccine Up-to-Date: Yes; Up-to-Date First/Initial COVID19 Vaccinat: YES Second COVID19 Vaccination Carlitos: YES Seasonal Allergies Seasonal Allergies: No Past Medical History Surgery/Hospitalization HX: AVR, EYE, TUBAL HOME O2, HTN, GOUT, ARTHRITIS, GERD, NIDDM, Surgeries: Yes (AORTIC VALVE REPLACEMENT/BOVINE VALVE 2013;CATARACT SURGERY) Eye Surgery, Tubal Ligation, Valve Replacement Respiratory: Yes (CHRONIC DYSPNEA AND COUGH--O2 AT 2L AT HS AND PRN) Cardiac: Yes (AORTIC VALVE REPLACEMENT / BOVINE VALVE 2013) Heart Murmur, Hypertension, Valvular Heart Disease Neurological: No DIRECTOR TRADE History: Tubal Ligation, Menopausal Genitourinary: No Gastrointestinal: Yes Gastroesophageal Reflux Musculoskeletal: Yes Arthritis, Gout Endocrine: Yes Diabetes, Non-Insulin dep HEENT: Yes (cataracts removed) Cancer: No Psychosocial: No Integumentary: No Blood Disorders: Yes (anemia) Physical Exam Vital Signs Vital Signs - First Documented 03/13/22 13:10 Temp 36.2 Pulse 48 Resp 19 B/P (MAP) 103/46 (65) Pulse Ox 97 O2 Delivery Nasal Cannula O2 Flow Rate 2.00 Capillary Refill : Height, Weight, BMI Height: 5'2.00" Weight: 150lbs. 0.0oz. 68.233055vb; 25.00 BMI Method: General Appearance: No Apparent Distress, WD/WN Neck: Full Range of Motion, Non Tender, Supple Respiratory: Chest Non Tender, Lungs Clear, Normal Breath Sounds, No Accessory Muscle Use, No Respiratory Distress Cardiovascular: No Edema, Bradycardia, Systolic Murmur Extremity: Normal Inspection, Normal Range of Motion, Non Tender, Other (Full range of motion of left shoulder, no edema, no signs of trauma) Neurologic/Psychiatric: Alert, Oriented x3, Normal Mood/Affect Skin: Normal Color, Warm/Dry Progress/Results/Core Measures Suspected Sepsis SIRS Temperature: Pulse: 48 Respiratory Rate: 19 Laboratory Tests 03/13/22 13:22: White Blood Count 9.3 Blood Pressure 103 /46 Mean: 65 Laboratory Tests 03/13/22 13:22: Creatinine 1.56H, INR Comment 1.1, Platelet Count 215, Total Bilirubin 0.9 Results/Orders Lab Results Laboratory Tests Test 03/13/22 13:22 Range/Units White Blood Count 9.3 4.3-11.0 10^3/uL Red Blood Count 3.69 L 3.80-5.11 10^6/uL Hemoglobin 11.9 11.5-16.0 g/dL Hematocrit 36 35-52 % Mean Corpuscular Volume 98 80-99 fL Mean Corpuscular Hemoglobin 32 25-34 pg Mean Corpuscular Hemoglobin Concent 33 32-36 g/dL Red Cell Distribution Width 15.6 H 10.0-14.5 % Platelet Count 215 130-400 10^3/uL Mean Platelet Volume 10.7 9.0-12.2 fL Immature Granulocyte % (Auto) 0 % Neutrophils (%) (Auto) 73 42-75 % Lymphocytes (%) (Auto) 14 12-44 % Monocytes (%) (Auto) 9 0-12 % Eosinophils (%) (Auto) 3 0-10 % Basophils (%) (Auto) 1 0-10 % Neutrophils # (Auto) 6.8 1.8-7.8 10^3/uL Lymphocytes # (Auto) 1.3 1.0-4.0 10^3/uL Monocytes # (Auto) 0.8 0.0-1.0 10^3/uL Eosinophils # (Auto) 0.3 0.0-0.3 10^3/uL Basophils # (Auto) 0.1 0.0-0.1 10^3/uL Immature Granulocyte # (Auto) 0.0 0.0-0.1 10^3/uL Prothrombin Time 14.9 H 12.2-14.7 SEC INR Comment 1.1 0.8-1.4 Activated Partial Thromboplast Time 30 24-35 SEC Sodium Level 135 135-145 MMOL/L Potassium Level 5.0 3.6-5.0 MMOL/L Chloride Level 100 98-107 MMOL/L Carbon Dioxide Level 21 21-32 MMOL/L Anion Gap 14 5-14 MMOL/L Blood Urea Nitrogen 41 H 7-18 MG/DL Creatinine 1.56 H 0.60-1.30 MG/DL Estimat Glomerular Filtration Rate 34 BUN/Creatinine Ratio 26 Glucose Level 145 H 70-105 MG/DL Calcium Level 10.4 H 8.5-10.1 MG/DL Corrected Calcium 10.3 H 8.5-10.1 MG/DL Magnesium Level 1.9 1.6-2.4 MG/DL Total Bilirubin 0.9 0.1-1.0 MG/DL Aspartate Amino Transf (AST/SGOT) 24 5-34 U/L Alanine Aminotransferase (ALT/SGPT) 22 0-55 U/L Alkaline Phosphatase 78 40-136 U/L Myoglobin 78.2 10.0-92.0 NG/ML Troponin I < 0.028 <0.028 NG/ML B-Type Natriuretic Peptide 2140.0 H <100.0 PG/ML Total Protein 8.5 H 6.4-8.2 GM/DL Albumin 4.1 3.2-4.5 GM/DL My Orders Orders - RAN ROSADO APRN Ekg Tracing (03/13/22 13:12) Cbc With Automated Diff (03/13/22 13:38) Magnesium (03/13/22 13:38) Chest 1 View, Ap/Pa Only (03/13/22 13:38) Comprehensive Metabolic Panel (03/13/22 13:38) Myoglobin Serum (03/13/22 13:38) Protime With Inr (03/13/22 13:38) Partial Thromboplastin Time (03/13/22 13:38) O2 (03/13/22 13:38) Monitor-Rhythm Ecg Trace Only (03/13/22 13:38) Ed Iv/Invasive Line Start (03/13/22 13:38) Bnp Jarred (03/13/22 13:38) Troponin I Tillman (03/13/22 13:38) Vital Signs/I&O 03/13/22 13:10 Temp 36.2 Pulse 48 Resp 19 B/P (MAP) 103/46 (65) Pulse Ox 97 O2 Delivery Nasal Cannula O2 Flow Rate 2.00 Capillary Refill : Blood Pressure Mean: 65 Progress Note #1: Time: 13:30 Progress Note Patient seen evaluated, resting comfortably on the cot, wearing normal amount of home oxygen at 2 L, no acute distress. Based on exam and symptoms, differential diagnosis includes IL, musculoskeletal pain. Will initiate cardiac work-up. Progress Note #2: Time: 14:34 Progress Note Lab results viewed, CBC grossly normal, RBCs 3.69. CMP reviewed, BUN 41, creatinine 1.56, GFR 34, known kidney disease. Troponin negative, BNP 2140, coags normal slightly elevated PT. Opacities noted on chest x-ray, edema versus infection. Likely related to edema from heart failure. Patient declined tramadol for pain, and states she will stick with Tylenol. Instructed patient to increase Lasix to 40 mg once a day for the next 3 days to help remove the extra fluid. Potassium 5.0, will not instruct patient to increase dose of potassium. Instructed to follow-up with her primary Dr. Powell, and Dr. Lui her document improvement specialist. Return precautions provided. Diagnostic Imaging Diagonstic Imaging: Xray Plain Films/CT/US/NM/MRI: chest Comments [facility] [place], [place] NAME: LILY IVEY [facility] REC#: [id number] PT STATUS: REG ER : 1945 PHYSICIAN: RAN ROSADO APRN ADMIT DATE: 03/13/22/ER Draft Date of Exam:03/13/22 CHEST 1 VIEW, AP/PA ONLY HISTORY: Chest pain. COMPARISON: 01/20/2020. TECHNIQUE: Frontal view of the chest. FINDINGS: Lung volumes are normal. There is mild cardiomegaly with mild central interstitial and airspace opacities. There appear to be diffuse interstitial opacities. There is no pleural effusion or pneumothorax. Sternotomy wires are noted. IMPRESSION: 1. Central predominant pulmonary opacities, may be due to edema or possibly infection. Dictated on workstation # [id number] Dict: 03/13/22 1358 Trans: 03/13/22 1401 [id number] Interpreted by: RACIEL BOND MD Electronically signed by: Departure Impression Primary Impression: Shoulder pain Qualified Codes: M25.512 - Pain in left shoulder Additional Impressions: CHF (congestive heart failure) Back pain Disposition: HOME, SELF-CARE Condition: Stable Departure-Patient Inst. Referrals: TATYANA POWELL DO (PCP/Family) Primary Care Physician Patient Instructions: Heart Failure ED Add. Discharge Instructions: Increase Lasix to 40 mg once a day for the next 3 days. Reduce salt intake. Continue monitoring weight. Follow-up with Dr. Powell and Dr. Lui. Return for chest pain, increased shortness of breath, new, concerning or worsening symptoms. All discharge instructions reviewed with patient and/or family. Voiced understanding. Copy Copies To 1: TATYANA POWELL BRITTANY R APRN Mar 13, 2022 13:46
[2022-03-13 13:51] LABS: INR 1.1 (0.8-1.4); PROTHROMBIN TIME PATIENT 14.9 SEC (12.2-14.7)
[2022-03-13 13:59] LABS: ALBUMIN 4.1 GM/DL (3.2-4.5); BILIRUBIN,TOTAL 0.9 MG/DL (0.1-1.0); CALCIUM 10.4 MG/DL (8.5-10.1); CREATININE SERUM 1.56 MG/DL (0.60-1.30); MAGNESIUM 1.9 MG/DL (1.6-2.4); TOTAL PROTEIN 8.5 GM/DL (6.4-8.2)
--- NOTE | 2022-03-13 14:01 | Diagnostic Imaging Report ---
HISTORY: Chest pain. COMPARISON: 01/20/2020. TECHNIQUE: Frontal view of the chest. FINDINGS: Lung volumes are normal. There is mild cardiomegaly with mild central interstitial and airspace opacities. There appear to be diffuse interstitial opacities. There is no pleural effusion or pneumothorax. Sternotomy wires are noted. IMPRESSION: 1. Central predominant pulmonary opacities, may be due to edema or possibly infection. Dictated by: Dictated on workstation # [id number]
[2022-03-13 14:56] VITALS: BP 129/68
== END 2022-03-13 15:00 | disposition home or self-care (01) ==
LOC: EDUNIT# 13:03 → ER 13:06
DX: I11.0 Hypertensive heart disease with heart failure (principal); I50.9 Heart failure, unspecified; M25.512 Pain in left shoulder; M54.6 Pain in thoracic spine; E11.9 Type 2 diabetes mellitus without complications; Z95.4 Presence of other heart-valve replacement; Z87.891 Personal history of nicotine dependence; Z79.84 Long term (current) use of oral hypoglycemic drugs
CPT/HCPCS: 36415; 71045; 80053; 83735; 83874; 83880; 84484; 85025; 85610; 85730; 93005; 93041